=== PATIENT | male | born 1935 | race Caucasian/White ===

== ENCOUNTER 2018-12-08 06:46 | Inpatient (IN) ==
--- NOTE | 2018-12-08 07:28 | Diag Imaging Result Doc PS360 ---
CHEST-1 VIEW - 12/08/2018 INDICATION: dyspnea COMPARISON: 06/07/2013 FINDINGS: There are extensive, heterogeneous bilateral infiltrates. There is cardiomegaly and pulmonary vascular congestion. No large pleural effusion. IMPRESSION: Cardiomegaly and pulmonary vascular congestion. Bilateral infiltrates consistent with pulmonary edema and/or pneumonia. Electronically signed by Mark Orosco 12/08/2018 7:25 AM
[2018-12-08] MEDS ORDERED: LASIX IV ONE (07:38)
--- NOTE | 2018-12-08 07:43 | PROVIDER DOCUMENTATION ---
HPI-Cardiac General - General Chief Complaint: Shortness of Breath Stated Complaint: lethargic Time Seen by Provider: 12/08/18 07:08 Source: patient, old records Allergies/Adverse Reactions: Patient Allergies Allergy/AdvReac Type Severity Reaction Status Date / Time No Known Allergies Allergy Unverified 12/08/18 07:39 Home Medications: Home Medication List Medication Instructions Recorded Confirmed Last Taken Type Clonazepam [Klonopin] 0.5 mg PO HS 05/30/13 06/07/13 05/29/13 20:00 History Escitalopram [Lexapro] 20 mg PO QHS 05/30/13 06/07/13 06/10/13 History Pregabalin [Lyrica] 75 mg PO QHS 05/30/13 06/07/13 06/10/13 22:55 History Tamsulosin [Flomax] 0.4 mg PO QHS 05/30/13 06/07/13 06/10/13 22:55 History Albuterol [Albuterol Neb] 2.5 mg INH RTQ6H #0 neb 06/11/13 06/11/13 Rx Formoterol Fumarate [Foradil] 1 puff INH RTBID #0 inhaler 06/11/13 06/10/13 Rx Guaifenesin E.r. [Mucinex] 600 mg PO BID #0 tablet 06/11/13 06/10/13 Rx Polyethylene Glycol 3350 [Miralax] 17 gm PO DAILY #0 powd.pack 06/11/13 06/10/13 Rx Fluticasone/Salmet 500/50 INH 1 puff INH RTBID #0 inhaler 06/17/13 Unknown Rx [Advair 500/50 Diskus] Multivit,Fe,Ca,FA & Min [Thera M 1 each PO DAILY #0 tablet 06/17/13 Unknown Rx Plus] Risperidone [Risperdal] 2 mg PO QHS #0 tablet 06/17/13 Unknown Rx Sulfamethoxazole/Trimethoprim 1 each PO BID #14 tablet 04/14/15 Unknown Rx [Bactrim Ds Tablet] - History of Present Illness-Cardiac Nature of Presenting Problem: pt from [facility] transferred w/ report of low sats there. I find him in the room on a NRB mask w/ sat of 95%. He is awake, easily alerted, oriented X3. He says he was sent here because he had a "slow heart beat." He denies CP or any other pain. He says he has been (dyspneic) for "quite a while." chart review shows 1 prior presentation here last Mar, w/ transfer to because of STEMI. no diuretics on current med list. Review of Systems - Adult - REVIEW OF SYSTEMS - ADULT Constitutional: reports: no symptoms reported Eyes: reports: no symptoms reported Ears, Nose, Mouth & Throat: reports: no symptoms reported Cardiovascular: reports: see HPI Respiratory: reports: see HPI Gastrointestinal: reports: no symptoms reported Genitourinary: reports: no symptoms reported Musculoskeletal: reports: no symptoms reported Integumentary: reports: no symptoms reported Neurological: reports: no symptoms reported Psychiatric: reports: no symptoms reported Endocrine: reports: no symptoms reported Hematologic/Lymphatic: reports: no symptoms reported Allergic/Immunologic: reports: no symptoms reported All Other Systems: Reviewed and Negative Past History - Adult - PAST MEDICAL HISTORY-ADULT Review of Records: reports: Old Records Reviewed Major Childhood Illnesses: reports: denies history Cardiovascular: reports: denies history Respiratory: reports: denies history Gastrointestinal: reports: denies history Obstetrical/Gynecological: reports: denies history Genitourinary: reports: denies history, other (urinary retention) Musculoskeletal: reports: denies history Neurological: reports: denies history Psychiatric: reports: anxiety, depression Endocrine/Immune: reports: denies history Other Conditions: reports: denies history - PRIOR SURGERIES/PROCEDURES Surgical/Procedure History: reports: reviewed, not pertinent - IMMUNIZATION STATUS Childhood Immunizations: See Nurse Assessment Flu Vaccine: See Nurse Assessment - FAMILY HISTORY Family History: reviewed, not pertinent Physical Exam-General - PHYSICAL EXAM-ADULT Initial Vital Signs Reviewed: Yes - CONSTITUTIONAL General Appearance: no apparent distress - EYES Eyes: PERRL/EOMI. negative: sclera injected, scleral icterus - HEAD, EARS, NOSE, MOUTH & THROAT HENMT: normocephalic/atraumatic, moist mucous membranes, normal ENT inspection, other (pt has small, 'old' dried blood on L mandible, reports shaving gretta.) - NECK Neck: supple - RESPIRATORY Respiratory: decreased breath sounds, crackles - CARDIOVASCULAR Cardiovascular: regular rate, rhythm, no edema, no JVD, bradycardia - GASTROINTESTINAL (ABDOMEN) Abdominal Exam: normal bowel sounds, non tender, soft - LYMPHATIC Lymphatic: no adenopathy - MUSCULOSKELETAL Back Exam: normal inspection, no CVA tenderness Extremity: normal range of motion, no pedal edema. negative: swelling Peripheral Pulses: radial (R): 2+, radial (L): 2+ - SKIN Integumentary: normal color, normal turgor, warm/dry - NEUROLOGIC Neurologic: founder and president II-XII nml as tested, grossly normal - PSYCHIATRIC Psych/Mental Status: normal mood/affect, normal thought content Progress - PLAN OF CARE/RESULTS Progress/Plan/Lab Results: Vital Signs - 8 hr 12/08/18 07:06 12/08/18 10:34 12/08/18 11:03 Temperature 96.8 F L 97.6 F Pulse Rate 61 64 Respiratory Rate 18 11 L Blood Pressure 158/80 114/70 O2 Sat by Pulse Oximetry 95 91 L 93 L Laboratory Results - last 24 hr 12/08/18 12/08/18 12/08/18 08:07 08:07 08:07 WBC 6.90 RBC 4.92 Hgb 14.7 Hct 45.9 MCV 93.3 MCH 29.9 MCHC 32.0 L RDW Std Deviation 14.6 H Plt Count 193 MPV 9.7 Immature Gran % (Auto) 0.3 Neut % (Auto) 62.6 Lymph % (Auto) 11.2 L Haralson % (Auto) 9.4 H Eos % (Auto) 16.1 H Baso % (Auto) 0.4 Immature Gran # (Auto) 0.02 Neut # (Auto) 4.32 Lymph # (Auto) 0.77 L Haralson # (Auto) 0.65 H Eos # (Auto) 1.11 H Baso # (Auto) 0.03 PT INR PTT (Actin FS) Specimen Type Sample Site pH pCO2 pO2 HCO3 Base Excess Oxyhemoglobin ABG O2 Sat (Calculated) ABG O2 Saturation ABG Carboxyhemoglobin ABG Methemoglobin Sloan Test A-a O2 Difference Total Hemoglobin Lactate Liter Flow Blood Gas Modality FiO2 % Sodium 138 Potassium 4.8 Chloride 98 Carbon Dioxide 34 Anion Gap 6 BUN 17 Creatinine 0.9 Estimated GFR/1.73 m2 > 60 BUN/Creatinine Ratio 19 Glucose 89 Calculated Osmolality 277 Calcium 8.3 L Magnesium 2.1 Total Bilirubin 0.23 AST 11 ALT 9 L Alkaline Phosphatase 87 Creatine Kinase 50 Troponin T Wiq-U-Ypqaldgejun Pept 769 H Total Protein 6.6 Albumin 3.2 L Globulin 3.4 Albumin/Globulin Ratio 0.9 12/08/18 12/08/18 12/08/18 08:07 08:07 08:45 WBC RBC Hgb Hct MCV MCH MCHC RDW Std Deviation Plt Count MPV Immature Gran % (Auto) Neut % (Auto) Lymph % (Auto) Haralson % (Auto) Eos % (Auto) Baso % (Auto) Immature Gran # (Auto) Neut # (Auto) Lymph # (Auto) Haralson # (Auto) Eos # (Auto) Baso # (Auto) PT 15.7 INR 1.16 PTT (Actin FS) 33.6 Specimen Type ARTERIAL Sample Site R RADIAL pH 7.36 pCO2 68 H* pO2 60 HCO3 32.2 H Base Excess 9.7 H Oxyhemoglobin 89.5 L* ABG O2 Sat (Calculated) 19.7 ABG O2 Saturation 92.7 L ABG Carboxyhemoglobin 2.40 ABG Methemoglobin 1.1 Sloan Test YES A-a O2 Difference 568.0 Total Hemoglobin 15.7 Lactate 0.70 Liter Flow 15.0 Blood Gas Modality NRB FiO2 % 100.0 Sodium Potassium Chloride Carbon Dioxide Anion Gap BUN Creatinine Estimated GFR/1.73 m2 BUN/Creatinine Ratio Glucose Calculated Osmolality Calcium Magnesium Total Bilirubin AST ALT Alkaline Phosphatase Creatine Kinase Troponin T < 0.010 Ush-H-Ptwpmcrsxmg Pept Total Protein Albumin Globulin Albumin/Globulin Ratio Orders Category Date Time Status Cardiac Monitoring DIRECTED Care 12/08/18 07:10 Active Intake and Output-Strict ORDERED Care 12/08/18 07:38 Active Oxygen Therapy- ED Nursing DIRECTED Care 12/08/18 07:10 Active Saline Loc NOW Care 12/08/18 07:10 Active CHEST-1 VIEW [RAD] Stat Exams 12/08/18 07:10 Completed ABG [RESP] Routine Lab 12/08/18 08:45 Completed CBC WITH ELECTRONIC DIFF [HEME] Stat Lab 12/08/18 08:07 Completed CK PROFILE [SP CHEM] Stat Lab 12/08/18 08:07 Completed COMPREHENSIVE METABOLIC PANEL [CHEM] Stat Lab 12/08/18 08:07 Completed MAGNESIUM [CHEM] Stat Lab 12/08/18 08:07 Completed PRO B-NATRIURETIC PEPTIDE Stat Lab 12/08/18 08:07 Completed PROTIME WITH INR [COAG] Stat Lab 12/08/18 08:07 Completed PTT [COAG] Stat Lab 12/08/18 08:07 Completed TROPONIN T Stat Lab 12/08/18 08:07 Completed Furosemide [Lasix] Med 12/08/18 07:38 Discontinued 40 mg IV NOW ONE BIPAP Stat Oth 12/08/18 10:35 Active CP/SOB/Palp >45 yrs of Age Stat Oth 12/08/18 07:09 Ordered Result Diagrams: 12/08/18 08:07 12/08/18 08:07 - REASSESSMENT Reassessment #2 Time Reassessed: 12:08 Status: improving (pt tolerating BIPAP mask adequately; will consult for CHF/resp failure) - CONSULTS/PCP/HOSPITALIST Notification #1 *Consult/PCP/Hospitalist*: Nicolas (Turner) Consult Disposition: Admit Departure - Departure Date of Disposition Decision: 12/08/18 Time of Disposition Decision: 12:11 DIAGNOSIS: Acute hypercapnic respiratory failure, Pulmonary edema cardiac cause Disposition: ADMITTED INPATIENT 09 Certified Medical Emergency: Emergent Condition: Critical Referrals and Follow-Ups: Chrissy Smith MD [Primary Care Provider] - - Critical Care Note This patient required my direct & personal management of CC.: Yes Total Time (mins): 40 Critical Care Statement: This patient required my direct personal management to treat or rule out processes, the absence of which, could potentiallly result in sudden, clinically significant life or limb threatening deterioration. Attestation - Physician/ MARGARITA Attestation The physician spent face to face time with patient:: Yes Advanced Practice Provider documentation review:: Supervising physician onsite and consulted in the evaluation and care of this patient. The physician did have a face to face encounter with the patient.
[2018-12-08 08:15] LABS: BASO# 0.03 X1000 (0.0-0.2); BASO% 0.4 % (0.0-0.8); EOS# 1.11 X1000 (0.0-0.7); EOS% 16.1 % (0.0-10.0); HEMATOCRIT 45.9 % (42.0-52.0); HEMOGLOBIN 14.7 g/dL (14.0-18.0); IMM GRAN# 0.02 X1000 (0.0-0.04); IMM GRAN% 0.3 % (0.0-0.5); LYMPH# 0.77 X1000 (1.2-3.4); LYMPH% 11.2 % (20.5-51.1); MCH 29.9 PG (27-31); MCV 93.3 FL (81-99); MONO# 0.65 X1000 (0.11-0.59); MONO% 9.4 % (1.7-9.3); MPV 9.7 FL (7.4-10.4); NEUT# 4.32 X1000 (1.4-6.5); NEUT% 62.6 % (42.2-75.2); PLT 193 X1000 (130-400); RBC 4.92 XMIL (4.7-6.1); RDW 14.6 % (11.5-14.5)
[2018-12-08 08:40] LABS: INR 1.16; PROTIME 15.7 Seconds (11.0-16.0)
[2018-12-08 08:41] LABS: PTT 33.6 Seconds (22.3-41.8)
[2018-12-08 08:45] LABS: AGAP 6; ALB/GLOB RATIO 0.9; ALBUMIN 3.2 g/dL (3.5-5.0); ALKALINE PHOSPHATASE 87 U/L (32-122); BUN 17 mg/dL (8-22); CALCIUM 8.3 mg/dL (8.8-10.2); CHLORIDE 98 mmol/L (98-107); CK PROFILE 50 U/L (24-204); COSMO 277; CREATININE 0.9 mg/dL (0.7-1.2); ESTIMATED GFR > 60; GLUCOSE 89 mg/dL (70-104); GOT 11 U/L (10-34); GPT 9 U/L (10-44); MAGNESIUM 2.1 mg/dL (1.5-2.7); POTASSIUM 4.8 mmol/L (3.5-5.1); SODIUM 138 mmol/L (136-145); TCO2 34 mmol/L (25-35); TOTAL BILIRUBIN 0.23 mg/dL (0.20-1.00); TOTAL PROTEIN 6.6 g/dL (6.3-8.3)
[2018-12-08 08:50] LABS: ALLEN TEST YES; BE 9.7 mmoll (-3.0-3.0); BLOOD TYPE ARTERIAL; HCO3-(ACT) 32.2 mmoll (20.0-26.0); METHB 1.1 % (0.0-1.5); O2(CT) 19.7 mL/dL (15.0-23.0); PO2(98.6) 60 mmHg (60-100); SAMPLE BLOOD; SAO2 92.7 % (95.0-100.0); THB 15.7 g/dL (11.5-17.4); pH(98.6) 7.36 (7.35-7.45)
[2018-12-08 08:52] LABS: MODALITY NRB; PCO2(98.6) 68 mmHg (35-45)
[2018-12-08 08:53] LABS: O2HB 89.5 % (95.0-99.0)
[2018-12-08] MEDS ORDERED: DUONEB (A & A) INH PRN (12:48)
[2018-12-08] MEDS ORDERED: ASPIRIN PO STA (12:52)
[2018-12-08] MEDS: MAXIPIME 1 GM in NS 50 ML IV SCH (13:09)
--- NOTE | 2018-12-08 14:42 | Diag Imaging Result Doc PS360 ---
CT MAXILLOFACIAL(SINUS) W/CON - 12/08/2018 INDICATION: left mandibular mass TECHNIQUE: COMPARISON: 06/07/2013 FINDINGS: At the lateral left mandibular tissue, there is a superficial skin mass measuring 25 x 10 mm. This does extend into the subcutaneous fat. No lymphadenopathy. No facial bone fractures. There is advanced spondylosis of the cervical spine. No severe central canal stenosis. There is vascular disease of the carotid bulbs. IMPRESSION: Superficial skin mass at the left mandible, probably skin cancer. This does involve the subcutaneous fat but does not invade through the platysma. No adenopathy. Electronically signed by Mark Orosco 12/08/2018 2:39 PM
--- NOTE | 2018-12-08 14:52 | Diag Imaging Result Doc PS360 ---
CT THORAX W/CONTRAST - 12/08/2018 INDICATION: respiratory failure COMPARISON: 06/22/2015 FINDINGS: There is no adenopathy. There is severe COPD. There is an mucous plugging of lower lobe airways bilaterally. There are moderate infiltrates in both lower lobes. Heart and great vessels are normal. Upper abdominal images are unremarkable. There is severe COPD. There are several right-sided rib fractures with nonunion that were not present on the prior exam. IMPRESSION: Mucous plugging of bilateral lower lobe airways. Bilateral lower lobe infiltrates compatible with pneumonia. Trace pleural effusions. Severe COPD. 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 This exam was performed using automated exposure control, adjustment of mA or kV according to patient size, and/or use of iterative reconstruction technique Electronically signed by Mark Orosco 12/08/2018 2:50 PM
[2018-12-08] MEDS ORDERED: NS 1,000 ML IV ONE (15:04)
--- NOTE | 2018-12-08 15:27 | HISTORY AND PHYSICAL ---
PRIMARY CARE PROVIDER: Unknown. CHIEF COMPLAINT: Respiratory failure. HISTORY OF PRESENT ILLNESS: Mr. Soares is an 83-year-old male with a history that is obtained per chart review, as the patient has dementia and is unable to give any type of history. Apparently, he came from [facility] with hypoxia and respiratory distress. We do have, on history, that he was admitted here last year with an ST elevation [place] and transferred to [place]. When he got to the ER today, he was noted to be hypoxic. Initial ABGs showed combined hypoxic and hypercapnic respiratory failure. He was placed on BiPAP. His chemistry thus far has been unremarkable. Chest x-ray shows bilateral infiltrates consistent with edema and/or pneumonia. There is cardiomegaly as well. proBNP is only measured at 769. Thus far, we have not been able to reach any of his family. Apparently there is only a niece, so at this time his status is FULL CODE. Other than the above mentioned, history of present illness is unknown. PAST MEDICAL HISTORY: 1. History of ST elevation [place], transferred to [place] last year. Results of that is unknown at this time, presumably he had a stent. 2. History of dementia. 3. History of prostate cancer. 4. COPD. 5. Hypothyroidism. 6. Apparent anxiety, depression, and schizophrenia. 7. History of lung cancer. 8. History of atrial fibrillation. SURGICAL HISTORY: Unknown. SOCIAL HISTORY: He lives at [facility]. Said he does not smoke. Alcohol and illicit substance use is unknown. REVIEW OF SYSTEMS: Unable to obtain. ALLERGIES: None. HOME MEDICATIONS: Yet been compiled. PHYSICAL EXAMINATION: VITAL SIGNS: Blood pressure is 114/70, heart rate 64, respiratory rate is 18, O2 saturation 95% on BiPAP, temperature 98.6. GENERAL: This is a chronically ill, disheveled appearing 83-year-old male lying in hospital bed, in mild to moderate respiratory distress. NEUROLOGICAL: The patient is awake. He is disoriented, unable to give his location, date, or who our current President is. He does follow commands, however, without focal deficits. HEENT: Head is atraumatic and normocephalic. His pupils are equal, round, reactive to light. Oral mucosa is extremely dry. NECK: Trachea is midline. He has a large, what appears to be fungating mass on the left lower mandible with associated erythema and swelling of the surrounding soft tissue. No drainage. CHEST: Wheezes and rhonchi bilaterally. CARDIOVASCULAR: Regular rate and rhythm. S1 and S2 is noted. No apparent murmurs. GASTROINTESTINAL: Soft, nondistended, nontender. Bowel sounds are hypoactive. EXTREMITIES: No edema. Pulses 1+ bilaterally. DIAGNOSTIC DATA: Chest x-ray shows bilateral infiltrates, cardiomegaly, and pulmonary vascular congestion. WBC 6.9, hemoglobin 14.7, hematocrit 45.9, platelet count 193. INR 1.16. Sodium 138, potassium 4.8, chloride 98, CO2 34, anion gap 6, BUN 17, creatinine 0.9, glucose 89, calcium 8.3, AST 11, ALT 9, alkaline phosphatase 87. proBNP 769. Albumin 3.2. TSH 2.33. Lactate acid 1. ASSESSMENT AND PLAN: 1. Acute hypoxemic and hypercapnic respiratory failure. The patient does not appear volume overloaded. There is no lower extremity edema. He does have wheezing and rhonchi bilaterally and chest x-ray does show some pulmonary edema and cardiomegaly. He has been given Lasix, however, his picture is more compatible with PNA. Will check a thorax CT. Will order blood and sputum cultures and start broad spectrum antibiotics. 2. History of coronary artery disease: The patient had a ST elevation myocardial infarction last year and was transferred to [facility] but we do not know the results of that transfer. Will try to obtain those records. Trend enzymes. He has gotten an aspirin. Will monitor him closely. 4. Apparent history of lung and prostate cancer: This is per chart review only. We are checking a thorax CT and we are trying to find family that can assist us with history. In the meantime, we will continue treating him for probable underlying pneumonia and congestive heart failure. 5. Dementia: Aware. 6. Code status: At this time patient FULL CODE until we can find evidence otherwise or speak to family. He will be going to the CICU. We are awaiting an EKG that has been ordered. CRITICAL CARE TIME WITH THIS PATIENT: One hour. Dictated by CLAIRE Garber for Sonal Tiwari MD cc: CLAIRE Garber MD I performed a face to face encounter on the patient. I reviewed all labs and imaging on the patient. I agree with the H&P as dictated. is a 83 year old male with a history of multiple medical problems who was sent the ER from [facility] in respiratory failure. The patient is demented and unable to provide any history. He does state that he feels short of breath.In the ER, a chest xray was done that revealed bilateral infiltrates. On exam, the patient is oriented to self only. He has diffuse rhonchi in all lung monroy. No pedal edema noted. The patient will be admitted with a diagnosis of acute hypercapnic and hypoxemic respiratory failure secondary to bilateral lobe pneumonia. Will make the patient NPO and order a swallow evaluation to be done tomorrow. Blood and sputum cultures have been ordered and the patient has been started on broad spectrum antibiotics. Will attempt to contact the patient's family to determine code status. [facility]ITAL[facility]
[2018-12-08] MEDS: ZYVOX 600 MG/D5W 600 MG/300 ML IVPB IV SCH (16:18)
[2018-12-08] MEDS: DUONEB (A & A) INH SCH ×3 (16:43→23:22)
--- NOTE | 2018-12-08 17:14 | Diag Imaging Result Doc PS360 ---
CT HEAD W/O CONTRAST - 12/08/2018 INDICATION: ams eval COMPARISON: 06/07/2013 FINDINGS: There is stable mild diffuse cerebral atrophy. There is mild periventricular white matter chronic microvascular disease. No intracranial mass or hemorrhage. The skull is intact. The sinuses are clear. IMPRESSION: No acute disease or change from prior. This exam was performed using automated exposure control, adjustment of mA or kV according to patient size, and/or use of iterative reconstruction technique Electronically signed by Mark Orosco 12/08/2018 5:12 PM
[2018-12-08] MEDS: MUCOMYST 20% INH SCH (19:30)
[2018-12-08] MEDS ORDERED: SODIUM CHLORIDE 0.9% INJ PRN (21:36)
[2018-12-08] MEDS ORDERED: SODIUM CHLORIDE 0.9% INJ SCH (21:45)
[2018-12-08 22:05] LABS: ALLEN TEST YES; BE 9.4 mmoll (-3.0-3.0); BLOOD TYPE ARTERIAL; HCO3-(ACT) 32.2 mmoll (20.0-26.0); METHB 1.2 % (0.0-1.5); O2(CT) 20.4 mL/dL (15.0-23.0); O2HB 94.5 % (95.0-99.0); PO2(98.6) 82 mmHg (60-100); SAMPLE BLOOD; SAO2 97.5 % (95.0-100.0); THB 15.3 g/dL (11.5-17.4); pH(98.6) 7.38 (7.35-7.45)
[2018-12-08 22:06] LABS: MODALITY NRB
[2018-12-08 22:07] LABS: PCO2(98.6) 63 mmHg (35-45)
[2018-12-09] MEDS: MAXIPIME 1 GM in NS 50 ML IV SCH ×2 (00:11→13:53)
[2018-12-09] MEDS: DUONEB (A & A) INH SCH ×6 (03:06→23:18)
[2018-12-09 03:24] LABS: ALLEN TEST YES; BE 9.4 mmoll (-3.0-3.0); BLOOD TYPE ARTERIAL; HCO3-(ACT) 32.1 mmoll (20.0-26.0); METHB 1.2 % (0.0-1.5); O2HB 91.3 % (95.0-99.0); PO2(98.6) 65 mmHg (60-100); SAMPLE BLOOD; THB 14.8 g/dL (11.5-17.4); pH(98.6) 7.39 (7.35-7.45)
[2018-12-09 03:25] LABS: MODALITY NRB
[2018-12-09 03:26] LABS: PCO2(98.6) 61 mmHg (35-45)
[2018-12-09] MEDS: ZYVOX 600 MG/D5W 600 MG/300 ML IVPB IV SCH ×2 (05:02→15:36)
[2018-12-09] MEDS ORDERED: OFIRMEV 1000 MG/ISOTONIC SOLN 1,000 MG/100 ML BOTTLE IV ONE (05:12)
[2018-12-09 05:29] LABS: BASO# 0.03 X1000 (0.0-0.2); BASO% 0.4 % (0.0-0.8); EOS# 0.88 X1000 (0.0-0.7); EOS% 12.1 % (0.0-10.0); HEMATOCRIT 45.2 % (42.0-52.0); HEMOGLOBIN 14.3 g/dL (14.0-18.0); IMM GRAN# 0.02 X1000 (0.0-0.04); IMM GRAN% 0.3 % (0.0-0.5); MCH 29.8 PG (27-31); MCHC 31.6 g/dL (33-37); MCV 94.2 FL (81-99); MONO# 0.64 X1000 (0.11-0.59); MONO% 8.8 % (1.7-9.3); MPV 9.7 FL (7.4-10.4); NEUT# 4.89 X1000 (1.4-6.5); NEUT% 67.4 % (42.2-75.2); PLT 202 X1000 (130-400); RDW 14.5 % (11.5-14.5); WBC 7.26 X1000 (4.8-10.8)
[2018-12-09] MEDS: PROTONIX PO SCH ×2 (05:42→06:02)
[2018-12-09] MEDS: SYNTHROID IV SCH ×2 (05:42→06:02)
[2018-12-09 06:01] LABS: AGAP 3; BUN 17 mg/dL (8-22); CALCIUM 8.1 mg/dL (8.8-10.2); CHLORIDE 101 mmol/L (98-107); COSMO 282; CREATININE 0.9 mg/dL (0.7-1.2); ESTIMATED GFR > 60; GLUCOSE 80 mg/dL (70-104); POTASSIUM 4.6 mmol/L (3.5-5.1); SODIUM 141 mmol/L (136-145); TCO2 37 mmol/L (25-35)
[2018-12-09] MEDS ORDERED: PROTONIX IV SCH (07:00)
--- NOTE | 2018-12-09 07:03 | Diag Imaging Result Doc PS360 ---
CHEST-PORTABLE - 12/09/2018 INDICATION: pneumonia COMPARISON: 12/08/2018 FINDINGS: There is worsening cardiomegaly and pulmonary vascular congestion. There is decrease in the patchy central infiltrates bilaterally, however there is worsening interstitial pulmonary edema. Trace left pleural effusion is stable from prior. IMPRESSION: Mixed changes from prior. Cardiomegaly, pulmonary edema, trace left pleural effusion. Electronically signed by Mark Orosco 12/09/2018 7:00 AM
[2018-12-09] MEDS: MUCOMYST 20% INH SCH ×2 (08:16→19:30)
[2018-12-09] MEDS ORDERED: HEPARIN SUBQ SCH (09:00)
--- NOTE | 2018-12-09 09:53 | EKG Report ---
Test Performed on : 12/08/2018 08:00:25 AM Test Reason : ED. NO order in [place] Blood Pressure : / mmHG Vent. Rate : 058 BPM Atrial Rate : 058 BPM P-R Int : 194 ms QRS Dur : 104 ms QT Int : 418 ms P-R-T Axes : 029 -09 059 degrees QTc Int : 410 ms Sinus bradycardia. Anterior infarct , age undetermined Abnormal ECG When compared with ECG of 29-MAR-2018 21:27, Vent. rate has decreased BY [address] no longer elevated in Inferior leads Unconfirmed Result
[2018-12-09] MEDS ORDERED: TYLENOL PR PRN (12:00)
--- NOTE | 2018-12-09 15:25 | PROGRESS NOTE ---
DATE: 12/09/2018 SUBJECTIVE: The patient is awake and alert. He states that he wants to eat something. OBJECTIVE: Vital Signs: Temperature 97 degrees, blood pressure 129/53, heart rate 60, respirations 14, O2 saturation is 95% on non-rebreather mask. General: This is a chronically ill- appearing, elderly male lying in bed, in no acute distress. Head: Normocephalic, atraumatic. Heart: S1, S2. Normal. Lungs: Equal air entry bilaterally. Diminished breath sounds at the bases. Abdomen: Positive bowel sounds. Soft, nontender, nondistended. Extremities: No edema. No cyanosis. Neurologic: The patient is alert and oriented to self. He is able to move all 4 extremities. LABS: White blood cell count 7.2, hemoglobin 14, hematocrit 45, platelets 202,000. ABG, pH 7.39, pCO2 61, PO2 65, bicarb 32. Sodium 141, potassium 4.6, chloride 101, CO2 37, BUN 17, creatinine 0.9, glucose 80, calcium 8.1, magnesium 2. Chest x-ray shows cardiomegaly, pulmonary edema, and a trace left pleural effusion. ASSESSMENT AND PLAN: 1. Acute hypercapnic respiratory failure. Continue to treat the underlying issues. 2. Bilateral lobe pneumonia. Continue with broad-spectrum antibiotics, supplemental oxygen, and bronchodilator therapy. 3. Severe chronic obstructive pulmonary disease. Aware. Continue with bronchodilator therapy. 4. Dementia. Aware. 5. Hypothyroidism. Continue on Synthroid. 6. Suspected right facial skin cancer. The patient will need a dermatology consult upon discharge from the hospital. 7. Deep vein thrombosis prophylaxis. Continue on heparin. cc: Sonal Tiwari MD [facility]
[2018-12-09] MEDS: PERCOCET-5 PO PRN (15:35)
[2018-12-09] MEDS ORDERED: TYLENOL PO PRN (18:37)
[2018-12-09] MEDS: ZOFRAN IV PRN (19:24)
[2018-12-09] MEDS: SYMBICORT 160/4.5 MICROGM INHALER INH SCH (19:30)
[2018-12-09] MEDS: REMERON PO SCH (20:09)
[2018-12-09] MEDS: MELATONIN PO SCH (20:10)
[2018-12-09] MEDS: COLACE PO SCH (20:10)
[2018-12-09] MEDS: ELIQUIS PO SCH (20:10)
[2018-12-09] MEDS: RISPERDAL PO SCH (20:10)
[2018-12-09] MEDS: FLOMAX PO SCH (20:10)
[2018-12-09] MEDS ORDERED: PHENERGAN IV ONE (22:07)
[2018-12-09] MEDS ORDERED: SODIUM CHLORIDE 0.9% INJ ONE (22:07)
[2018-12-09] MEDS: KLONOPIN PO PRN (23:25)
[2018-12-10] MEDS: MAXIPIME 1 GM in NS 50 ML IV SCH ×2 (01:02→14:06)
[2018-12-10] MEDS: ZOFRAN IV PRN (01:34)
[2018-12-10] MEDS: DUONEB (A & A) INH SCH ×6 (03:17→22:59)
[2018-12-10] MEDS: PERCOCET-5 PO PRN (04:06)
[2018-12-10] MEDS: ZYVOX 600 MG/D5W 600 MG/300 ML IVPB IV SCH ×2 (04:06→16:31)
[2018-12-10 05:45] LABS: BASO# 0.01 X1000 (0.0-0.2); BASO% 0.1 % (0.0-0.8); EOS# 0.66 X1000 (0.0-0.7); EOS% 9.5 % (0.0-10.0); HEMATOCRIT 42.3 % (42.0-52.0); HEMOGLOBIN 13.6 g/dL (14.0-18.0); LYMPH# 0.88 X1000 (1.2-3.4); LYMPH% 12.7 % (20.5-51.1); MCHC 32.2 g/dL (33-37); MCV 93.2 FL (81-99); MONO# 0.66 X1000 (0.11-0.59); MONO% 9.5 % (1.7-9.3); NEUT# 4.71 X1000 (1.4-6.5); NEUT% 68.2 % (42.2-75.2); PLT 188 X1000 (130-400); RBC 4.54 XMIL (4.7-6.1); RDW 14.2 % (11.5-14.5); WBC 6.92 X1000 (4.8-10.8)
[2018-12-10] MEDS: PROTONIX PO SCH (06:11)
[2018-12-10] MEDS: SYNTHROID PO SCH (06:11)
[2018-12-10 06:28] LABS: CHLORIDE 99 mmol/L (98-107); POTASSIUM 3.9 mmol/L (3.5-5.1); SODIUM 137 mmol/L (136-145); TCO2 31 mmol/L (25-35)
[2018-12-10 06:29] LABS: AGAP 7; BUN 16 mg/dL (8-22); CALCIUM 7.8 mg/dL (8.8-10.2); COSMO 275; CREATININE 0.9 mg/dL (0.7-1.2); ESTIMATED GFR > 60; GLUCOSE 97 mg/dL (70-104); MAGNESIUM 1.9 mg/dL (1.5-2.7)
--- NOTE | 2018-12-10 06:39 | Diag Imaging Result Doc PS360 ---
EXAM: CHEST-PORTABLE HISTORY: pneumonia TECHNIQUE: Portable chest single view COMPARISON: 12/09/2018 FINDINGS: Poor inspiratory effort. The heart remains enlarged. Pulmonary edema persists. There is a small left pleural effusion with basilar atelectasis. There may be underlying infiltrates. IMPRESSION: No interval improvement. Electronically signed by Javi Salomon 12/10/2018 6:36 AM
[2018-12-10] MEDS: MUCOMYST 20% INH SCH ×2 (07:58→19:30)
[2018-12-10] MEDS: SYMBICORT 160/4.5 MICROGM INHALER INH SCH ×2 (08:00→19:30)
[2018-12-10] MEDS: ELIQUIS PO SCH ×2 (08:25→20:35)
[2018-12-10] MEDS: MIRALAX PO SCH (08:25)
[2018-12-10] MEDS: COLACE PO SCH ×2 (08:25→20:35)
[2018-12-10] MEDS: THERA M PLUS PO SCH (08:25)
[2018-12-10] MEDS: PROSCAR PO SCH (08:25)
--- NOTE | 2018-12-10 08:46 | PROGRESS NOTE ---
DATE: 12/10/2018 SUBJECTIVE: Mr. Soares is an 83-year-old male with a history from the chart who has dementia. He came from [facility] with hypoxia and respiratory distress. I am not sure who his primary caregiver is. He was admitted last year with an ST-elevation myocardial infarction and transferred to [place] per the old records. When in the emergency room, he was hypoxic. His blood gases showed combined hypoxic and hypercapnic respiratory failure. He is placed on BiPAP. His chemistry thus far is unremarkable. Chest x-ray showed bilateral infiltrates consistent with edema and possible pneumonia. He had cardiomegaly as well. ProBNP was measured at 769. Apparently, the only family around is a niece. He is still a Full Code. PAST MEDICAL HISTORY: 1. History of ST-elevation myocardial infarction, transferred to [place] last year, results unknown at this time. 2. History of dementia. 3. History of prostate cancer. 4. COPD. 5. Hypothyroidism. 6. Apparent anxiety, depression and schizophrenia. 7. History of lung cancer. 8. History of atrial fibrillation. SURGICAL HISTORY: Unknown. So today, he was awake, I think he is oriented to person. He answers questions appropriately. He reports he feels he is breathing better. OBJECTIVE: Vitals: Temperature 97.9 degrees, pulse 64, respirations 22, blood pressure 112/57. Eyes: His pupils are equal. Neck: I did not appreciate distended neck veins. Lungs: Clear anterolateral. Cardiovascular: Regular rhythm and rate without murmur or S3. Abdomen: Soft. Skin: Warm and dry. URINE OUTPUT: 900 mL. LABORATORY DATA: Review of his laboratory, white count 6920, hematocrit is 42, platelet count 188,000. Sodium 137, potassium 3.9, chloride 99, BUN 16, creatinine 0.9, calcium 7.8. Troponins were less than 0.01. CK 54 and 51. ASSESSMENT AND PLAN: 1. Acute hypercapnic respiratory failure. Continue his supplementary O2 and pulmonary toilet. 2. I suspect bilateral lobe pneumonia. So continue broad-spectrum antibiotics. He is from the skilled nursing, supplemental oxygen and bronchodilator therapy. 3. Exacerbation of chronic obstructive pulmonary disease. 4. Dementia. Aware. 5. History of hypothyroidism. He is on Synthroid. Appears to be euthyroid. 6. Right facial skin cancer. We will need to discharge with Dermatology on discharge. 7. Continue deep venous thrombosis prophylaxis. 8. Review of Orders: He is on melatonin 5 mg at bedtime, Remeron 45 mg at bedtime, Risperdal 1.5 mg at bedtime, Flomax 0.54 mg at bedtime, Eliquis 5 mg b.i.d., prednisone, formoterol inhaler 1 puff b.i.d., Klonopin 0.5 mg t.i.d. p.r.n., Colace 100 mg b.i.d., Proscar 5 mg a day, Synthroid 25 mg daily, cefepime 1 g IV q.12h, metoprolol 50 mg a day, multivitamin daily, oxycodone 1.5 mg b.i.d. p.r.n., Protonix 40 mg daily, polyethylene glycol 17 g p.o. daily, linezolid 600 mg IV q.12h, getting IV fluids at 75 mL an hour. cc: Sloan Ji MD
[2018-12-10] MEDS ORDERED: CYMBALTA PO SCH (09:00)
[2018-12-10] MEDS ORDERED: TOPROL XL PO SCH (09:00)
[2018-12-10] MEDS ORDERED: WELLBUTRIN PO SCH (09:00)
--- NOTE | 2018-12-10 12:54 | ECHO REPORT ---
ORDER DATE: 12/08/2018 ECHOCARDIOGRAPHIC MEASUREMENTS: 1. Interventricular septum 1.0. 2. Left ventricular posterior wall 0.9. 3. Diastolic diameter 5.2. 4. Left atrium 3.5. 5. Aorta 4. SUMMARY: 1. There is left atrial enlargement. 2. Aortic valve leaflets were trileaflet. 3. Mitral valve was normal. 4. Tricuspid valve was normal. 5. Pulmonic valve was normal. 6. There is mild mitral annular calcification. 7. There is mild tricuspid regurgitation. Peak velocity across the tricuspid valve was 2.9 m/sec. Pulmonary artery systolic pressure 44 mmHg. 8. There is mild mitral regurgitation. 9. There is no aortic stenosis. There is mild aortic regurgitation. 10. There is diastolic dysfunction. 11. Normal left ventricular cavity size. Estimated ejection fraction of 55% to 60%. 12. There is no pericardial effusion or obvious intracardiac mass or thrombus. cc: MD Orlando Salmon CRNP
[2018-12-10 17:16] LABS: URINE SOURCE CATH
[2018-12-10 17:22] LABS: BILIRUBIN URINE NEGATIVE (NEGATIVE); BLOOD URINE LARGE (NEGATIVE); COLOR YELLOW; GLUCOSE URINE NEGATIVE (NEGATIVE); KETONE URINE 20 mg/dL (NEGATIVE); LEUKOCYTES URINE SMALL (NEGATIVE); NITRITE URINE NEGATIVE (NEGATIVE); PROTEIN URINE 50 mg/dL (NEGATIVE); SP GRAVITY URINE 1.021; TURBIDITY URINE HAZY (CLEAR); UROBILINOGEN URINE NORMAL (NORMAL)
[2018-12-10 17:23] LABS: UR EPITHELIAL CELLS <10 /HPF (<10); URINE BACTERIA NEGATIVE /HPF; URINE RBC TNTC /HPF (<10)
[2018-12-10] MEDS: REMERON PO SCH (20:30)
[2018-12-10] MEDS: RISPERDAL PO SCH (20:30)
[2018-12-10] MEDS: MELATONIN PO SCH (20:35)
[2018-12-10] MEDS: FLOMAX PO SCH (20:38)
[2018-12-10] MEDS: KLONOPIN PO PRN (22:18)
[2018-12-11] MEDS: MAXIPIME 1 GM in NS 50 ML IV SCH ×2 (02:56→14:38)
[2018-12-11] MEDS: DUONEB (A & A) INH SCH ×6 (03:56→23:30)
[2018-12-11] MEDS: ZYVOX 600 MG/D5W 600 MG/300 ML IVPB IV SCH ×2 (04:24→15:03)
[2018-12-11 05:49] LABS: BASO# 0.02 X1000 (0.0-0.2); BASO% 0.3 % (0.0-0.8); EOS# 0.75 X1000 (0.0-0.7); EOS% 10.3 % (0.0-10.0); HEMATOCRIT 44.2 % (42.0-52.0); HEMOGLOBIN 14.2 g/dL (14.0-18.0); LYMPH# 0.83 X1000 (1.2-3.4); LYMPH% 11.4 % (20.5-51.1); MCH 29.7 PG (27-31); MCHC 32.1 g/dL (33-37); MCV 92.5 FL (81-99); MONO# 0.78 X1000 (0.11-0.59); MONO% 10.7 % (1.7-9.3); MPV 10.1 FL (7.4-10.4); NEUT# 4.88 X1000 (1.4-6.5); NEUT% 67.3 % (42.2-75.2); PLT 178 X1000 (130-400); RBC 4.78 XMIL (4.7-6.1); WBC 7.26 X1000 (4.8-10.8)
[2018-12-11] MEDS: SYNTHROID PO SCH (06:15)
[2018-12-11] MEDS: PROTONIX PO SCH (06:15)
[2018-12-11 06:32] LABS: AGAP 9; BUN 14 mg/dL (8-22); CALCIUM 7.7 mg/dL (8.8-10.2); CHLORIDE 100 mmol/L (98-107); COSMO 274; CREATININE 0.9 mg/dL (0.7-1.2); ESTIMATED GFR > 60; GLUCOSE 101 mg/dL (70-104); MAGNESIUM 2.1 mg/dL (1.5-2.7); POTASSIUM 4.1 mmol/L (3.5-5.1); SODIUM 137 mmol/L (136-145); TCO2 28 mmol/L (25-35)
--- NOTE | 2018-12-11 07:05 | PROGRESS NOTE ---
DATE: 12/11/2018 SUBJECTIVE: Mr. Soares is more awake and alert. He says he does feel better. Breathing is better, and still feels pretty weak. No complaints of pain. OBJECTIVE: Temperature 98.1 degrees, pulse 40, respirations 17, and blood pressure. 129/61. His pulse has been in the 40 to 55 range. Lungs are clear anterolateral. Cardiovascular regular rhythm and rate without murmur or S3. Abdomen is soft. Skin is warm and dry. LABORATORY DATA: Labs from this morning, white count 7260, hematocrit is 44, and platelet count 178,000. Chemistry: Sodium 137, potassium 3.9, chloride 99, BUN 16, and creatinine 0.9. ASSESSMENT AND PLAN: 1. Acute hypercapnic respiratory failure. Continue supplementary O2. I believe he has O2 at home. Continue pulmonary toilet. 2. Suspect bilateral pneumonia. Treating with broad-spectrum antibiotics. He clinically is improved. 3. Exacerbation of COPD. 4. Dementia. 5. History of hypothyroidism. He is on his Synthroid, and appears to be euthyroid. 6. Right facial skin cancer, which we suspect he will need to follow up with Dermatology on discharge. 7. Deep venous thrombosis prophylaxis. Continue. 8. I may also cut down his metoprolol to 25 p.o. daily because of the bradycardia. 9. Review of his orders. I do not see any change. I will get Physical Therapy to start working with him to work on his strength in preparation to try to go home. cc: Sloan Ji MD
[2018-12-11] MEDS: MUCOMYST 20% INH SCH ×2 (07:59→19:45)
[2018-12-11] MEDS: SYMBICORT 160/4.5 MICROGM INHALER INH SCH ×2 (08:07→19:45)
[2018-12-11] MEDS: MIRALAX PO SCH (08:37)
[2018-12-11] MEDS: ELIQUIS PO SCH ×2 (08:39→20:31)
[2018-12-11] MEDS: COLACE PO SCH ×2 (08:39→20:31)
[2018-12-11] MEDS: PROSCAR PO SCH (08:39)
[2018-12-11] MEDS: THERA M PLUS PO SCH (08:39)
[2018-12-11] MEDS: TOPROL XL PO SCH (08:39)
[2018-12-11] MEDS: ZOFRAN IV PRN (10:08)
[2018-12-11] MEDS: REMERON PO SCH (20:31)
[2018-12-11] MEDS: RISPERDAL PO SCH (20:31)
[2018-12-11] MEDS: MELATONIN PO SCH (20:31)
[2018-12-11] MEDS: FLOMAX PO SCH (20:31)
[2018-12-11] MEDS: KLONOPIN PO PRN (22:46)
[2018-12-12] MEDS: MAXIPIME 1 GM in NS 50 ML IV SCH ×2 (02:48→15:10)
[2018-12-12] MEDS: DUONEB (A & A) INH SCH ×6 (03:14→23:31)
[2018-12-12] MEDS: ZYVOX 600 MG/D5W 600 MG/300 ML IVPB IV SCH ×2 (03:27→15:10)
[2018-12-12 06:16] LABS: AGAP 8; BUN 11 mg/dL (8-22); CHLORIDE 100 mmol/L (98-107); COSMO 274; CREATININE 0.9 mg/dL (0.7-1.2); ESTIMATED GFR > 60; GLUCOSE 120 mg/dL (70-104); POTASSIUM 3.7 mmol/L (3.5-5.1); SODIUM 137 mmol/L (136-145); TCO2 29 mmol/L (25-35)
[2018-12-12] MEDS: PROTONIX PO SCH (06:21)
[2018-12-12] MEDS: SYNTHROID PO SCH (06:21)
--- NOTE | 2018-12-12 07:19 | Diag Imaging Result Doc PS360 ---
EXAM: CHEST-PORTABLE 12/12/2018 HISTORY: copd, pneumonia TECHNIQUE: AP portable at 0537 COMMENT: There is cardiomegaly and diffuse interstitial and alveolar opacity consistent with pulmonary edema. This has worsened slightly on the right compared to 12/10/2018, despite the relatively better inspiration. IMPRESSION: Worsening pulmonary edema plus minus pneumonia. Electronically signed by Jan Olivares 12/12/2018 7:16 AM
[2018-12-12] MEDS: MUCOMYST 20% INH SCH ×2 (07:37→19:20)
[2018-12-12] MEDS: SYMBICORT 160/4.5 MICROGM INHALER INH SCH ×2 (07:38→19:20)
[2018-12-12] MEDS: COLACE PO SCH ×2 (08:22→20:35)
[2018-12-12] MEDS: ELIQUIS PO SCH ×2 (08:22→20:35)
[2018-12-12] MEDS: THERA M PLUS PO SCH (08:22)
[2018-12-12] MEDS: PROSCAR PO SCH (08:22)
[2018-12-12] MEDS: MIRALAX PO SCH (08:22)
[2018-12-12] MEDS: TOPROL XL PO SCH (08:22)
--- NOTE | 2018-12-12 09:12 | PROGRESS NOTE ---
DATE: 12/12/2018 SUBJECTIVE: Mr. Soares is feeling better. He feels stronger. He wants to go back to [facility], but his chest x-ray still shows quite a bit of pleural effusion. I think he needs some more treatment and we will continue to treat his pneumonia with IV antibiotics. I think he is going to need another 48 hours or so. OBJECTIVE: Vital signs: Temperature 98 degrees, pulse 57, respirations 19, blood pressure 149/78. HEENT: Pupils are equal and round. Lungs: Clear in all lung monroy. Cardiovascular: Regular rhythm and rate without murmur or S3. Abdomen: Soft. Skin: Warm and dry. ASSESSMENT AND PLAN: 1. Acute hypercapnic respiratory failure. Continue supplemental O2. We have been able to wean him down. His air and gas exchange is better. 2. Suspect bilateral pneumonia. Continue broad-spectrum antibiotics. I do not have any cultures to identify organism. 3. Exacerbation of chronic obstructive pulmonary disease. 4. Some pulmonary venous hypertension. I am going to diurese him some. 5. Dementia. 6. Hypothyroidism. 7. Right facial skin cancer which we need to make sure we get a follow-up at discharge. 8. Deep venous thrombosis. Continue current treatment. 9. We have cut his metoprolol down. His heart rate looks like it is doing better, it is in the 50s to 60s. cc: Sloan Ji MD
--- NOTE | 2018-12-12 09:24 | DISCHARGE SUMMARY ---
ADMISSION DATE: 12/08/2018 DISCHARGE DATE: DISPOSITION: Patient was admitted on 12/08/2018, came from [facility]. He is going back to [facility] on 12/12/2018. FAMILY PHYSICIAN: Dr. Chrissy Smith. REASON FOR ADMISSION: Came in with respiratory failure. BRIEF HISTORY: Mr. Soares is an 83-year-old male with history of dementia, unable to give much history. He is from [facility]. He came in with hypoxic respiratory failure. In the emergency room, was noted to be hypoxic. Initial blood gases showed combined hypoxic, hypercapnic respiratory failure. He was placed on BiPAP. His chemistries were unremarkable. Chest x-ray showed bilateral infiltrates consistent with edema versus pneumonia. He had cardiomegaly. ProBNP was 769, and so he was admitted, registered as a full code. PAST MEDICAL HISTORY: 1. History of ST-elevation myocardial infarction, transferred to [place] last year. Results of this unknown. Presumably, he had a stent placed. 2. History of dementia. 3. History of prostate cancer. 4. COPD. 5. Hypothyroidism. 6. Apparent anxiety, depression and schizophrenia. 7. History of lung cancer. 8. History of atrial fibrillation. So admitted. ADMISSION DIAGNOSES: 1. Acute hypoxemic hypercapnic respiratory failure and appeared to have some volume overload and lower extremity edema and some wheezing and rhonchi bilaterally, so he was diuresed, put on antibiotics, treating him for bilateral pneumonia. 2. History of coronary artery disease. No sign of active ischemia. The patient has had a recent history of ST-elevation myocardial infarction. This was with last year where he was transferred to [facility] but no sign of active ischemia at this time. 3. Apparent history of lung and prostate cancer. Checking CT of the thorax and aware of this. 4. Dementia. 5. Full code status. HOSPITAL COURSE: He was admitted to [facility]. Chest x-ray showed cardiomegaly, pulmonary vascular congestion, bilateral infiltrates consistent with pulmonary edema and probable pneumonia. Maxillofacial CT, he had a superficial skin mass in the left mandible, probably skin cancer. This does involve the subcutaneous fat., and so will recommend he get outpatient evaluation on that. He had a chest CT done. Mucous plugging of bilateral lower lobe airways, bilateral lower lobe infiltrates compatible with pneumonia, trace pleural effusions, severe COPD, chronic rib fractures on the right with nonunion appreciated. CT of his head, no acute disease or change from prior. Followup chest x-ray on 12/09/2018, mixed changes, cardiomegaly, pulmonary edema, trace left pleural effusion, and then repeat chest x-ray on 12/10/2018, no interval improvement. Chest x-ray this morning has some pulmonary edema plus-minus still some infiltrate. The patient feels better. He would like to go home back to [facility]. He is stronger. OBJECTIVE: Vital signs: Today, temperature 98 degrees, pulse 57, respirations 19, blood pressure 149/78. HEENT: Pupils are equal and round. Lungs: Clear anterolateral. Cardiovascular: Regular rhythm and rate without murmur or S3. Abdomen: Soft. Skin: Warm and dry. LABORATORY DATA: Blood work looks good. CURRENT MEDICATIONS: 1. He is taking Symbicort inhaler. 2. He is on Klonopin 0.5 mg t.i.d. p.r.n. 3. Colace 100 mg b.i.d. 4. Proscar 5 mg a day. 5. Synthroid 25 mcg a day. 6. He is on linezolid 600 mg q.12. 7. He has Percocet 1-/2 he takes twice a day p.r.n. 8. Protonix 40 mg a day. 9. MiraLAX 17 g a day. 10. Risperdal 1.5 mg at bedtime. 11. Flomax 0.4 mg a day. NOTE: His x-ray shows worsening edema. We are going to need to diurese him some more, and I think he is radiographically going to need to improve before we can send him back to [facility], so he will not be discharged today and I will put in a progress note here in a minute. cc: Sloan Ji MD MTDEmory
[2018-12-12] MEDS: LASIX IV SCH ×2 (10:05→20:36)
[2018-12-12] MEDS: PERCOCET-5 PO PRN (18:23)
[2018-12-12] MEDS: REMERON PO SCH (20:35)
[2018-12-12] MEDS: MELATONIN PO SCH (20:35)
[2018-12-12] MEDS: FLOMAX PO SCH (20:35)
[2018-12-12] MEDS: RISPERDAL PO SCH (20:36)
[2018-12-13] MEDS: KLONOPIN PO PRN (00:32)
[2018-12-13] MEDS: MAXIPIME 1 GM in NS 50 ML IV SCH ×2 (01:30→13:56)
[2018-12-13] MEDS: DUONEB (A & A) INH SCH ×6 (03:23→22:45)
[2018-12-13] MEDS: ZYVOX 600 MG/D5W 600 MG/300 ML IVPB IV SCH (04:09)
[2018-12-13] MEDS ORDERED: CARDIZEM IV ONE (04:34)
[2018-12-13] MEDS ORDERED: CARDIZEM 125 MG/D5W 125 MG/125 ML IVPB IV SCH (04:45)
[2018-12-13] MEDS ORDERED: CARDIZEM 125/NS 125 MG/125 ML IVPB IV SCH (05:00)
[2018-12-13] MEDS: SYNTHROID PO SCH (06:12)
[2018-12-13] MEDS: PROTONIX PO SCH (06:12)
[2018-12-13 06:26] LABS: AGAP 13; ALB/GLOB RATIO 0.8; ALBUMIN 3.2 g/dL (3.5-5.0); ALKALINE PHOSPHATASE 84 U/L (32-122); BUN 15 mg/dL (8-22); CALCIUM 8.1 mg/dL (8.8-10.2); CHLORIDE 95 mmol/L (98-107); COSMO 274; ESTIMATED GFR > 60; GLUCOSE 116 mg/dL (70-104); GOT 20 U/L (10-34); GPT 16 U/L (10-44); MAGNESIUM 1.8 mg/dL (1.5-2.7); POTASSIUM 3.7 mmol/L (3.5-5.1); SODIUM 136 mmol/L (136-145); TCO2 28 mmol/L (25-35); TOTAL BILIRUBIN 0.38 mg/dL (0.20-1.00); TOTAL PROTEIN 7.4 g/dL (6.3-8.3)
--- NOTE | 2018-12-13 06:59 | EKG Report ---
Test Performed on : 12/13/2018 06:17:48 AM Test Reason : Change in rhythm Blood Pressure : / mmHG Vent. Rate : 070 BPM Atrial Rate : 070 BPM P-R Int : 162 ms QRS Dur : 102 ms QT Int : 416 ms P-R-T Axes : 062 -06 073 degrees QTc Int : 449 ms Sinus rhythm. with frequent premature ventricular complexes. in a pattern of bigeminy. Minimal voltage criteria for LVH, may be normal variant Anterior infarct , age undetermined Abnormal ECG When compared with ECG of 13-DEC-2018 03:42, (Unconfirmed) Significant changes have occurred Confirmed by Garrison SHEPHERD, Sloan Jimenez ([id number]) on 12/13/2018 12:00:43 PM
--- NOTE | 2018-12-13 06:59 | EKG Report ---
Test Performed on : 12/13/2018 03:42:54 AM Test Reason : CIC. NO EKG ORDER FOR MUSE Blood Pressure : / mmHG Vent. Rate : 132 BPM Atrial Rate : 144 BPM P-R Int : 000 ms QRS Dur : 096 ms QT Int : 322 ms P-R-T Axes : 000 007 103 degrees QTc Int : 477 ms Atrial fibrillation. with rapid ventricular response. with premature ventricular or aberrantly conduc nasir complexes. Minimal voltage criteria for LVH, may be normal variant Possible Inferior infarct , age undetermined Marked ST abnormality, possible lateral subendocardial injury Abnormal ECG When compared with ECG of 08-DEC-2018 08:00, (Unconfirmed) Atrial fibrillation. has replaced Sinus rhythm. Vent. rate has increased BY 74 BPM Borderline criteria for Inferior infarct are now present ST now depressed in Anterolateral leads Confirmed by Garrison SHEPHERD, Sloan Jimenez ([id number]) on 12/13/2018 12:00:38 PM
--- NOTE | 2018-12-13 07:13 | Diag Imaging Result Doc PS360 ---
EXAM: CHEST-PORTABLE 12/13/2018 HISTORY: pulmonary venous htn TECHNIQUE: AP portable at 0532 COMMENT: Compared to 12/12/2018 the pulmonary opacity has generally improved despite the somewhat less optimal inspiration on the current examination. IMPRESSION: Improved pulmonary edema. Electronically signed by Jan Olivares 12/13/2018 7:11 AM
[2018-12-13] MEDS ORDERED: DULCOLAX PR PRN (07:46)
[2018-12-13] MEDS ORDERED: MILK OF MAGNESIA PO PRN (07:47)
[2018-12-13] MEDS: MUCOMYST 20% INH SCH ×2 (08:18→19:25)
[2018-12-13] MEDS: SYMBICORT 160/4.5 MICROGM INHALER INH SCH ×2 (08:20→19:25)
--- NOTE | 2018-12-13 08:21 | PROGRESS NOTE ---
DATE: 12/12/2018 SUBJECTIVE: He is stronger. Seems to be breathing better. OBJECTIVE: Vital Signs: Temperature 97.4, remains afebrile. Pulse 60, respirations 17, blood pressure 112/66. Weight is 160 pounds. HEENT: Pupils are equal and round. Lungs: Clear in all lung monroy. Cardiovascular: Regular rate without murmur or S3. DIAGNOSTIC DATA: Chest x-ray: Improved pulmonary edema. ASSESSMENT AND PLAN: 1. Acute hypercapnic respiratory failure. Continue supplemental O2, and we will continue to diurese. X-ray looks better. Clinical exam better. 2. Suspect bilateral pneumonia. I think this has been well treated. Continue present antibiotics. 3. Exacerbation of chronic obstructive pulmonary disease. 4. Pulmonary venous hypertension. Continue to diurese. 5. Dementia. 6. Hypothyroidism. 7. Right facial skin cancer. We need to make sure he gets follow-up at discharge. He probably needs that removed. 8. Deep venous thrombosis prophylaxis. Continue. 9. Heart rate looks good. We have cut his metoprolol down. 10. Review of his orders: He is on melatonin 5 mg at bedtime, Remeron 45 mg at bedtime, risperidone 1.5 mg at bedtime, Flomax 0.4 mg at bedtime. I think he is on p.o. diltiazem, but I do not see that. I think we will start the p.o. diltiazem. He had to be started on IV Cardizem again. Continue cefepime 1 gram. cc: Sloan Ji MD
[2018-12-13] MEDS: ELIQUIS PO SCH ×2 (09:01→21:08)
[2018-12-13] MEDS: COLACE PO SCH ×2 (09:01→21:07)
[2018-12-13] MEDS: THERA M PLUS PO SCH (09:01)
[2018-12-13] MEDS: MIRALAX PO SCH (09:01)
[2018-12-13] MEDS: TOPROL XL PO SCH (09:01)
[2018-12-13] MEDS: CARDIZEM PO SCH ×3 (09:01→21:07)
[2018-12-13] MEDS: LASIX IV SCH (09:01)
[2018-12-13] MEDS: PROSCAR PO SCH (09:01)
[2018-12-13] MEDS: ZOFRAN IV PRN (09:42)
[2018-12-13] MEDS ORDERED: LASIX IV ONE (18:40)
[2018-12-13] MEDS ORDERED: LASIX ONE (18:51)
[2018-12-13] MEDS: FLOMAX PO SCH (21:07)
[2018-12-13] MEDS: RISPERDAL PO SCH (21:07)
[2018-12-13] MEDS: REMERON PO SCH (21:07)
[2018-12-13] MEDS: MELATONIN PO SCH (21:08)
[2018-12-13] MEDS: PERCOCET-5 PO PRN (23:52)
[2018-12-14] MEDS: MAXIPIME 1 GM in NS 50 ML IV SCH ×2 (02:16→15:04)
[2018-12-14] MEDS: DUONEB (A & A) INH SCH ×6 (03:31→22:45)
[2018-12-14 06:09] LABS: CALCIUM 8.2 mg/dL (8.8-10.2); CREATININE 1.3 mg/dL (0.7-1.2); POTASSIUM 3.7 mmol/L (3.5-5.1)
[2018-12-14] MEDS: PROTONIX PO SCH (06:25)
[2018-12-14] MEDS: SYNTHROID PO SCH (06:25)
--- NOTE | 2018-12-14 07:25 | PROGRESS NOTE ---
DATE: 12/14/2018 SUBJECTIVE: He is resting, sleeping comfortably, breathing comfortably. OBJECTIVE: Vital signs: Temperature 97.9 degrees, pulse 59, respirations 17, blood pressure 117/66. HEENT: Pupils are equal and round. Lungs: Clear in all lung monroy anterolateral. Cardiovascular: Regular rhythm and rate without murmur or S3. Abdomen: Soft. Skin: Warm and dry. Urine output 1900 mL. ASSESSMENT AND PLAN: 1. Acute hypercapnic respiratory failure. Continue supplemental O2. We will continue to diurese. Chest x-ray looks better and on clinical exam, he is improving. He did have some more rales yesterday evening and so gave him an extra dose of Lasix. 2. Suspect bilateral pneumonia. Continue to treat. 3. Exacerbation of chronic obstructive pulmonary disease. 4. Pulmonary venous hypertension. Continue to diurese. 5. Dementia. 6. Hypothyroidism. 7. Right facial skin cancer which will need to get followup. 8. Deep venous thrombosis prophylaxis. 9. Heart rate appears controlled. PRESENT ORDERS: She is on melatonin 5 mg at bedtime, Remeron 45 mg at bedtime, Risperdal 1.5 mg p.o. at bedtime, Flomax 0.4 mg at bedtime, acetylcysteine treatment b.i.d., albuterol ipratropium q.2 hours p.r.n., Eliquis 5 mg b.i.d., budesonide formoterol 1 puff b.i.d., Klonopin 0.5 mg t.i.d. p.r.n., Cardizem 30 mg p.o. t.i.d., Colace 100 mg b.i.d., Proscar 5 mg a day, Synthroid 25 mcg daily, cefepime 1 g IV q.12 hours, metoprolol 25 mg a day, multivitamin daily, oxycodone 1-1/2 tablets 5 mg tablet b.i.d. p.r.n., Protonix 40 mg a day, MiraLAX 17 g daily. We will put on some Cardizem drip again last night. I am going to increase the p.o. Cardizem to 60 mg 3 times a day. cc: Sloan Ji MD
[2018-12-14] MEDS: ELIQUIS PO SCH ×3 (07:57→21:19)
[2018-12-14] MEDS: TOPROL XL PO SCH ×2 (07:57→08:12)
[2018-12-14] MEDS: MIRALAX PO SCH ×2 (07:57→08:13)
[2018-12-14] MEDS: COLACE PO SCH ×3 (07:57→21:19)
[2018-12-14] MEDS: PROSCAR PO SCH ×2 (07:57→08:12)
[2018-12-14] MEDS: THERA M PLUS PO SCH ×2 (07:57→08:12)
[2018-12-14] MEDS ORDERED: LASIX ONE (08:35)
[2018-12-14] MEDS: MUCOMYST 20% INH SCH ×2 (08:43→19:36)
[2018-12-14] MEDS: SYMBICORT 160/4.5 MICROGM INHALER INH SCH ×3 (08:44→19:36)
--- NOTE | 2018-12-14 08:54 | Diag Imaging Result Doc PS360 ---
EXAM: CHEST-PORTABLE INDICATION: pulmonary venous htn TECHNIQUE: One view COMPARISON: 12/13/2018 FINDINGS: Interstitial and airspace infiltrates, most compatible with edema are approximately stable. No new consolidation is identified. Cardiac silhouette is stable. IMPRESSION: Stable chest. Electronically signed by Tom Sousa 12/14/2018 8:52 AM
[2018-12-14] MEDS ORDERED: CARDIZEM PO SCH (09:00)
[2018-12-14] MEDS: LASIX IV SCH ×2 (13:27→21:19)
[2018-12-14] MEDS: GENTAMICIN 0.3% OPH DROPS BOTH EYES SCH ×2 (15:04→21:19)
[2018-12-14] MEDS: CARDIZEM PO SCH ×2 (15:04→21:19)
[2018-12-14] MEDS: RISPERDAL PO SCH (21:19)
[2018-12-14] MEDS: REMERON PO SCH (21:19)
[2018-12-14] MEDS: MELATONIN PO SCH (21:19)
[2018-12-14] MEDS: FLOMAX PO SCH (21:19)
[2018-12-15] MEDS: MAXIPIME 1 GM in NS 50 ML IV SCH ×2 (01:52→14:41)
[2018-12-15] MEDS: DUONEB (A & A) INH SCH ×6 (03:37→22:53)
[2018-12-15] MEDS: SYNTHROID PO SCH (06:20)
[2018-12-15] MEDS: PROTONIX PO SCH (06:20)
--- NOTE | 2018-12-15 07:37 | PROGRESS NOTE ---
DATE: 12/15/2018 SUBJECTIVE: Mr. Soares feels better. He feels stronger. He feels like he could go back to [facility] today. We will see if we can get him back tomorrow. OBJECTIVE: Vital Signs: Temperature 98.3 degrees, pulse 107, respirations 17, blood pressure 119/57. HEENT: Pupils are equal and round. Lungs: Clear in all lung monroy. Cardiovascular: Regular rhythm and rate without murmur or S3. Abdomen: Soft. Skin: Warm and dry. IMAGING: Chest x-ray from yesterday: Stable chest, interstitial and airspace infiltrates most compatible with edema, proximally stable. No new consolidation. Cardiac silhouette stable. ASSESSMENT AND PLAN: 1. Acute hypercapnic respiratory failure. Continue supplementary O2. We will continue to diurese, but he appears better. I think he can go back to [facility] tomorrow. Check another chest x-ray. I think we will get a PA and lateral today. 2. Suspect bilateral pneumonia which has been treated. 3. Exacerbation of chronic obstructive pulmonary disease with pneumonia. 4. Pulmonary venous hypertension, which has responded to diuresis. 5. Dementia. 6. Hypothyroidism. 7. Right facial skin cancer, which we need to get follow up with. Suspect that will need to be removed. 8. Deep venous thrombosis prophylaxis. 9. Heart rate appears controlled. 10. Benign prostatic hypertrophy. He is on Flomax. REVIEW OF HIS ORDERS: I do not see any change. cc: Sloan Ji MD
[2018-12-15] MEDS: MUCOMYST 20% INH SCH ×2 (07:58→19:18)
[2018-12-15 08:43] LABS: ALLEN TEST YES; BE 4.1 mmoll (-3.0-3.0); BLOOD TYPE ARTERIAL; METHB 1.1 % (0.0-1.5); O2(CT) 21.3 mL/dL (15.0-23.0); O2HB 94.7 % (95.0-99.0); PCO2(98.6) 47 mmHg (35-45); PO2(98.6) 78 mmHg (60-100); SAMPLE BLOOD; SAO2 97.3 % (95.0-100.0); pH(98.6) 7.41 (7.35-7.45)
[2018-12-15 08:44] LABS: MODALITY NRB
[2018-12-15] MEDS: SYMBICORT 160/4.5 MICROGM INHALER INH SCH ×2 (09:00→19:18)
[2018-12-15] MEDS: MIRALAX PO SCH (09:03)
[2018-12-15] MEDS: LASIX IV SCH ×2 (09:03→20:38)
[2018-12-15] MEDS: PROSCAR PO SCH (09:03)
[2018-12-15] MEDS: COLACE PO SCH ×2 (09:04→20:38)
[2018-12-15] MEDS: ELIQUIS PO SCH ×2 (09:04→20:39)
[2018-12-15] MEDS: GENTAMICIN 0.3% OPH DROPS BOTH EYES SCH ×3 (09:04→16:33)
[2018-12-15] MEDS: TOPROL XL PO SCH (09:04)
[2018-12-15] MEDS: THERA M PLUS PO SCH (09:04)
[2018-12-15] MEDS: CARDIZEM PO SCH ×3 (09:04→20:39)
--- NOTE | 2018-12-15 14:58 | Diag Imaging Result Doc PS360 ---
EXAM: CHEST-2 VIEWS INDICATION: pulmonary venous htn. TECHNIQUE: 2 views COMPARISON: 12/14/2018 FINDINGS: Interstitial and airspace opacities bilaterally with a basilar predominance are unchanged. No new consolidation is identified. Cardiac silhouette is stable. IMPRESSION: Stable chest. Electronically signed by Tom Sousa 12/15/2018 2:55 PM
[2018-12-15] MEDS: PERCOCET-5 PO PRN (16:33)
[2018-12-15] MEDS: FLOMAX PO SCH (20:38)
[2018-12-15] MEDS: MELATONIN PO SCH (20:39)
[2018-12-15] MEDS: RISPERDAL PO SCH (20:39)
[2018-12-15] MEDS: REMERON PO SCH (20:39)
[2018-12-16] MEDS: MAXIPIME 1 GM in NS 50 ML IV SCH ×2 (02:01→15:14)
[2018-12-16] MEDS: DUONEB (A & A) INH SCH ×6 (03:44→23:25)
[2018-12-16] MEDS: SYNTHROID PO SCH ×2 (05:55→06:24)
[2018-12-16] MEDS: PROTONIX PO SCH ×2 (05:57→06:24)
--- NOTE | 2018-12-16 07:30 | EKG Report ---
Test Performed on : 12/14/2018 3:45:48 PM Test Reason : rhythm change Blood Pressure : / mmHG Vent. Rate : 066 BPM Atrial Rate : 066 BPM P-R Int : 184 ms QRS Dur : 098 ms QT Int : 386 ms P-R-T Axes : 045 -31 073 degrees QTc Int : 404 ms Sinus rhythm. with occasional premature ventricular complexes. Left axis deviation Minimal voltage criteria for LVH, may be normal variant Anterolateral infarct (cited on or before 08-DEC-2018) Abnormal ECG When compared with ECG of 13-DEC-2018 06:17, Questionable change in initial forces of Lateral leads Confirmed by Garrison SHEPHERD, Sloan Jimenez ([id number]) on 12/17/2018 9:59:59 AM
[2018-12-16 08:27] LABS: AGAP 11; BUN 33 mg/dL (8-22); CALCIUM 8.6 mg/dL (8.8-10.2); CHLORIDE 96 mmol/L (98-107); COSMO 284; CREATININE 1.1 mg/dL (0.7-1.2); ESTIMATED GFR > 60; GLUCOSE 92 mg/dL (70-104); MAGNESIUM 2.1 mg/dL (1.5-2.7); SODIUM 139 mmol/L (136-145); TCO2 32 mmol/L (25-35)
[2018-12-16] MEDS: SYMBICORT 160/4.5 MICROGM INHALER INH SCH ×2 (08:32→19:20)
[2018-12-16] MEDS: MUCOMYST 20% INH SCH ×2 (08:32→19:20)
[2018-12-16] MEDS: LASIX IV SCH ×2 (08:36→20:45)
[2018-12-16] MEDS: CARDIZEM PO SCH ×3 (08:36→20:46)
[2018-12-16] MEDS: COLACE PO SCH ×2 (08:36→20:46)
[2018-12-16] MEDS: MIRALAX PO SCH (08:36)
[2018-12-16] MEDS: PROSCAR PO SCH (08:36)
[2018-12-16] MEDS: GENTAMICIN 0.3% OPH DROPS BOTH EYES SCH ×3 (08:37→17:24)
[2018-12-16] MEDS: TOPROL XL PO SCH (08:37)
[2018-12-16] MEDS: THERA M PLUS PO SCH (08:37)
[2018-12-16] MEDS: ELIQUIS PO SCH ×2 (08:49→20:46)
--- NOTE | 2018-12-16 09:36 | PROGRESS NOTE ---
DATE: 12/16/2018 SUBJECTIVE: Mr. Soares says he feels fine, but his O2 saturation is still requiring quite a bit oxygen, still significant AA gradient. OBJECTIVE: Vital Signs: Temperature 98.4 degrees, pulse 63, respirations 15. HEENT: Pupils are equal and round. Neck: No distended neck veins. Lungs: Clear anterior and posterior. Cardiovascular: Regular rhythm and rate without murmur or S3. Abdomen: Soft. Skin: Warm and dry. Urine output is 2700 mL. LABORATORY DATA: Labs from this morning, sodium 139, potassium 4.0, chloride 96, BUN 33, creatinine 1.1. His chest x-ray, interstitial and airspace opacities bilateral with basilar prominence unchanged. No new consolidation. ASSESSMENT AND PLAN: 1. Hypercapnic respiratory failure. Continues to require quite a bit O2. I am going to ask Pulmonary to look about trying to get him back to [facility], but it just seems like we are not getting much improvement. I do not know if there is anything else we can try to improve his respiratory status and gas exchange. 2. Suspect bilateral pneumonia, which I feel has been treated. 3. Exacerbation of chronic obstructive pulmonary disease with pneumonia. 4. Pulmonary venous hypertension, which has responded to diuresis. Continue to diurese. 5. Dementia. 6. History of primary hypothyroidism. 7. Right facial skin cancer, which we need to get followed up when he leaves. 8. Deep venous thrombosis prophylaxis. 9. Heart rate is controlled. 10. Benign prostatic hypertrophy. 11. He came in with Gray catheter. I think he has a catheter dependent neurogenic bladder, so I am going to ask Pulmonary if they have any ideas. cc: lSoan Ji MD
[2018-12-16 10:08] LABS: ALLEN TEST YES; BE 8.1 mmoll (-3.0-3.0); BLOOD TYPE ARTERIAL; HCO3-(ACT) 30.8 mmoll (20.0-26.0); O2(CT) 19.7 mL/dL (15.0-23.0); PCO2(98.6) 47 mmHg (35-45); PO2(98.6) 50 mmHg (60-100); SAMPLE BLOOD; SAO2 88.1 % (95.0-100.0); THB 16.4 g/dL (11.5-17.4); pH(98.6) 7.46 (7.35-7.45)
[2018-12-16 10:09] LABS: MODALITY NRB; O2HB 85.7 % (95.0-99.0)
[2018-12-16] MEDS ORDERED: VANCOMYCIN IV PER PHARMACY MISC SCH (10:30)
[2018-12-16 11:00] LABS: BASO# 0.04 X1000 (0.0-0.2); BASO% 0.6 % (0.0-0.8); EOS# 0.92 X1000 (0.0-0.7); EOS% 13.3 % (0.0-10.0); HEMATOCRIT 49.5 % (42.0-52.0); HEMOGLOBIN 16.2 g/dL (14.0-18.0); LYMPH% 10.1 % (20.5-51.1); MCH 29.3 PG (27-31); MCHC 32.7 g/dL (33-37); MCV 89.7 FL (81-99); MONO# 0.71 X1000 (0.11-0.59); MONO% 10.2 % (1.7-9.3); MPV 10.2 FL (7.4-10.4); NEUT# 4.56 X1000 (1.4-6.5); NEUT% 65.8 % (42.2-75.2); PLT 168 X1000 (130-400); RBC 5.52 XMIL (4.7-6.1); RDW 14.2 % (11.5-14.5); WBC 6.93 X1000 (4.8-10.8)
[2018-12-16] MEDS: PERCOCET-5 PO PRN ×2 (12:04→20:46)
[2018-12-16] MEDS: VANCOMYCIN 1,500 MG in NS 250 ML IV SCH (13:18)
[2018-12-16] MEDS: REMERON PO SCH (20:46)
[2018-12-16] MEDS: MELATONIN PO SCH (20:46)
[2018-12-16] MEDS: RISPERDAL PO SCH (20:46)
[2018-12-16] MEDS: FLOMAX PO SCH (20:46)
--- NOTE | 2018-12-16 22:09 | PULMONOLOGY CONSULTATION ---
DATE: 12/16/2018 REQUESTING PHYSICIAN: Dr. Sloan Ji. REASON FOR CONSULTATION: Help with evaluation and treatment. HISTORY OF PRESENT ILLNESS: Mr. Soares CT scan was reviewed by this practitioner and demonstrates severe COPD, venous hypertension, tracheobronchial malacia with possible mucus impaction versus tumor in the left mainstem with several rib fractures which were not present 06/22/2015. The patient has been on nonrebreather or BiPAP since admission. Pulmonary consultation was requested. PAST MEDICAL HISTORY/PROBLEM LIST: 1. Chronic obstructive pulmonary disease. 2. Dementia. 3. Depression. 4. Schizoaffective disorder with delusional features. 5. Coronary artery disease as per above. 6. BPH. 7. History of prostate cancer. 8. Lung cancer noted per Dr. Tiwari. I cannot find additional information on that diagnose. 9. Hypothyroidism. 10. History atrial fibrillation . SOCIAL HISTORY: By report he no longer smokes while living at [facility]. Previously had a 60+ pack-year history for tobacco. REVIEW OF SYSTEMS: Limited. He reports "I am not sure. " PHYSICAL EXAM: Reveals a chronically ill-appearing demented white male. He currently is on BiPAP and reports that this helps his breathing. BP 122/66, heart rate 60, respiratory rate 16, oxygen saturation 96%.HEENT: Pupils are equal and reactive. Oropharynx appears clear but evaluation is limited. Neck: Supple. Chest: Reveals coarse rhonchi bilaterally with prolonged expiratory phase. Cardiac: Distant heart sounds, regular rate. Abdomen: Soft. Extremities: Reveal trace edema. LABORATORIES: White blood count 6.93, hemoglobin 16.2, platelet count 168,000. Arterial blood gas on nonrebreather pH 7.46, pCO2 of 47, PO2 of 50. Arterial blood gas on admission to the hospital pH 7.36, pCO2 of 68, pO2 60 on nonrebreather. Sodium 130, potassium 4.0, chloride 96, bicarbonate level 32, anion gap 11, BUN 33, creatinine 1.1. Chest x-ray reveals stable bibasilar infiltrates. IMPRESSION: 1. 83-year-old with acute on chronic hypoxemic respiratory failure. 2. Chronic hypercapnic respiratory failure. 3. Bibasilar infiltrates consistent with pneumonia. With pattern, aspiration is suspected. 4. 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 5. Possible endobronchial lesion in the left mainstem. He is not a candidate for aggressive intervention such as bronchoscopy. 6. Severe chronic obstructive pulmonary disease. 7. Dementia. RECOMMENDATIONS: 1. Cycle BiPAP at bedtime and p.r.n. He might be a candidate for Trilogy device. 2. Continue bronchial hygiene with nebulizers and Mucomyst. 3. Continue cefepime. Will add vancomycin. 4. Agree with speech therapy evaluation. 5. Agree with palliative care consultation. The patient's prognosis is poor. 6. Will check CEA level in the morning. As outlined above, he is not a candidate for aggressive evaluation or intervention given his dementia, advanced emphysema and chronic hypoxemic and hypercapnic respiratory failure. cc: Alberto Taylor MD MTDD
[2018-12-17] MEDS: MAXIPIME 1 GM in NS 50 ML IV SCH ×2 (01:33→14:26)
[2018-12-17] MEDS: DUONEB (A & A) INH SCH ×6 (03:15→23:25)
[2018-12-17 04:27] LABS: ALLEN TEST YES; BE 4.6 mmoll (-3.0-3.0); BLOOD TYPE ARTERIAL; HCO3-(ACT) 28.4 mmoll (20.0-26.0); METHB 1.4 % (0.0-1.5); O2(CT) 20.8 mL/dL (15.0-23.0); O2HB 93.6 % (95.0-99.0); PCO2(98.6) 48 mmHg (35-45); PO2(98.6) 73 mmHg (60-100); SAMPLE BLOOD; SAO2 97.2 % (95.0-100.0); THB 15.8 g/dL (11.5-17.4); pH(98.6) 7.41 (7.35-7.45)
[2018-12-17 04:28] LABS: MODALITY BI PAP
[2018-12-17] MEDS: SYNTHROID PO SCH ×2 (04:48→06:08)
[2018-12-17] MEDS: PROTONIX PO SCH ×2 (04:48→06:07)
[2018-12-17 05:32] LABS: HEMATOCRIT 49.3 % (42.0-52.0); HEMOGLOBIN 15.9 g/dL (14.0-18.0); WBC 7.53 X1000 (4.8-10.8)
[2018-12-17 05:33] LABS: BASO# 0.04 X1000 (0.0-0.2); BASO% 0.5 % (0.0-0.8); EOS# 0.97 X1000 (0.0-0.7); EOS% 12.9 % (0.0-10.0); IMM GRAN# 0.02 X1000 (0.0-0.04); IMM GRAN% 0.3 % (0.0-0.5); LYMPH# 0.99 X1000 (1.2-3.4); LYMPH% 13.1 % (20.5-51.1); MCH 29.4 PG (27-31); MCHC 32.3 g/dL (33-37); MCV 91.3 FL (81-99); MONO# 0.86 X1000 (0.11-0.59); MONO% 11.4 % (1.7-9.3); MPV 10.7 FL (7.4-10.4); NEUT# 4.65 X1000 (1.4-6.5); NEUT% 61.8 % (42.2-75.2); PLT 169 X1000 (130-400); RDW 14.3 % (11.5-14.5)
[2018-12-17 05:52] LABS: ALB/GLOB RATIO 0.9; ALBUMIN 3.6 g/dL (3.5-5.0); CALCIUM 8.9 mg/dL (8.8-10.2); CREATININE 1.2 mg/dL (0.7-1.2); MAGNESIUM 2.2 mg/dL (1.5-2.7); PHOSPHORUS 3.1 mg/dL (2.7-4.5); POTASSIUM 3.9 mmol/L (3.5-5.1); TOTAL BILIRUBIN 0.4 mg/dL (0.20-1.00); TOTAL PROTEIN 7.8 g/dL (6.3-8.3)
[2018-12-17] MEDS: SYMBICORT 160/4.5 MICROGM INHALER INH SCH ×2 (07:24→19:40)
[2018-12-17] MEDS: MUCOMYST 20% INH SCH ×2 (07:24→19:40)
--- NOTE | 2018-12-17 08:05 | Diag Imaging Result Doc PS360 ---
CHEST-PORTABLE - 12/17/2018 INDICATION: abnormal exam COMPARISON: 12/15/2018 FINDINGS: Stable moderately low lung volumes. Stable hazy opacities in the lung bases bilaterally. No new infiltrates. No pneumothorax or large pleural effusion. Heart size remains normal. Stable pulmonary vascular congestion. IMPRESSION: No change from prior. Electronically signed by Mark Orosco 12/17/2018 8:02 AM
[2018-12-17] MEDS: ELIQUIS PO SCH ×2 (08:19→20:21)
[2018-12-17] MEDS: CARDIZEM PO SCH ×3 (08:19→21:14)
[2018-12-17] MEDS: THERA M PLUS PO SCH (08:19)
[2018-12-17] MEDS: PROSCAR PO SCH (08:19)
[2018-12-17] MEDS: TOPROL XL PO SCH (08:19)
[2018-12-17] MEDS: LASIX IV SCH ×2 (08:19→20:21)
[2018-12-17] MEDS: COLACE PO SCH ×2 (08:19→20:23)
[2018-12-17] MEDS: GENTAMICIN 0.3% OPH DROPS BOTH EYES SCH ×3 (08:19→21:14)
[2018-12-17] MEDS: MIRALAX PO SCH (08:20)
--- NOTE | 2018-12-17 09:46 | EKG Report ---
Test Performed on : 12/17/2018 09:39:56 AM Test Reason : Rhythm change, Increased HR Blood Pressure : / mmHG Vent. Rate : 149 BPM Atrial Rate : 159 BPM P-R Int : 000 ms QRS Dur : 098 ms QT Int : 308 ms P-R-T Axes : 000 -29 111 degrees QTc Int : 485 ms Atrial fibrillation. with rapid ventricular response. ST & T wave abnormality, consider lateral ischemia Abnormal ECG When compared with ECG of 14-DEC-2018 15:45, (Unconfirmed) Atrial fibrillation. has replaced Sinus rhythm. Vent. rate has increased BY [address] now depressed in Inferior leads ST now depressed in Lateral leads Confirmed by Garrison SHEPHERD, Sloan Jimenez ([id number]) on 12/17/2018 10:02:30 AM
[2018-12-17] MEDS: VANCOMYCIN 1,500 MG in NS 250 ML IV SCH (12:22)
--- NOTE | 2018-12-17 12:54 | EKG Report ---
Test Performed on : 12/17/2018 10:23:27 AM Test Reason : Rhythm change Blood Pressure : / mmHG Vent. Rate : 078 BPM Atrial Rate : 078 BPM P-R Int : 186 ms QRS Dur : 096 ms QT Int : 382 ms P-R-T Axes : 080 -09 084 degrees QTc Int : 435 ms Sinus rhythm. with frequent premature ventricular complexes. Minimal voltage criteria for LVH, may be normal variant Anterior infarct (cited on or before 17-DEC-2018) Abnormal ECG When compared with ECG of 17-DEC-2018 10:22, (Unconfirmed) No significant change was found Confirmed by Garrison SHEPHERD, Sloan Jimenez ([id number]) on 12/18/2018 9:44:52 AM
--- NOTE | 2018-12-17 13:16 | CARDIOLOGY CONSULTATION ---
DATE: 12/17/2018 Cardiology was consulted for atrial fibrillation. Patient has history of atrial fibrillation. The patient is admitted with respiratory failure. An 83-year-old gentleman who has dementia, unable to give history. History was obtained from the chart. Was admitted from [facility] with hypoxia and respiratory distress. He today went into atrial fibrillations, subsequently converted to sinus rhythm. He has known history of paroxysmal atrial fibrillation. At the time of my examination, patient does not complain of any chest pain. He says he did feel the palpitations this morning. However, feels better now his shortness of breath as he feels better as well. When he was admitted, his chest x-ray showed bilateral infiltrates consistent with pneumonia or edema. His proBNP was 769. PAST MEDICAL HISTORY: 1. Patient was admitted at [facility] in March 2018. At that time, he had paroxysmal atrial fibrillation and was converted to sinus rhythm. 2. Had a left mandibular mass. 3. Had respiratory failure. 4. His echocardiogram 03/28/2018 revealed ejection fraction of 60% to 65% with left ventricular hypertrophy. 5. He had bilateral lower lobe consolidation during his hospitalization by CT scan at [facility] 04/03/2018. He had aspiration pneumonia in both lungs. 6. Dementia. 7. Paroxysmal atrial fibrillation. 8. History of lung cancer. 9. Hypothyroidism. 10. COPD. 11. Prostate cancer. HOME MEDICATIONS: Included: 1. Tamsulosin 0.4 mg at bedtime. 2. Lyrica 75 mg p.o. t.i.d. 3. Clonazepam. 4. Nebulizers. 5. Multivitamins. 6. Eliquis 5 mg p.o. b.i.d. 7. Bupropion 75 mg. 8. Vitamin D. 9. Docusate. 10. Duloxetine 60. 11. Finasteride 5. 12. Lasix 20 mg a day. 13. Metoprolol 50 mg a day. 14. Senna. 15. Inhalers. 16. Symbicort. 17. He was on Augmentin at home. 18. Levothyroxine 25. 19. Risperidone. CURRENT MEDICATIONS: Include: 1. He was started on Cardizem 60 mg 3 times a day. 2. In addition, he is on cefepime. 3. Lasix 40 mg IV twice daily. PHYSICAL EXAMINATION: On examination, blood pressure was 118/64. He had bilateral expiratory wheeze. First and second heart sounds were heard. There was no S3 gallop. Abdomen was obese soft, nontender. There was no guarding or rigidity. Bowel sounds were heard.Central Nervous System: Alert. Was moving all 4 extremities. Examination of extremities revealed trace edema. ASSESSMENT AND PLAN: Mr. Familia Soares is an 83-year-old gentleman with history of chronic obstructive pulmonary disease, respiratory failure, history of aspiration pneumonia, dementia, paroxysmal atrial fibrillation. He is admitted with respiratory failure and shortness of breath. From a cardiac standpoint: 1. His recent echocardiogram in December 2018 revealed ejection fraction of 55% to 60% percent. He has paroxysmal atrial fibrillation documented. He has been started on Cardizem. We will change his Cardizem to Cardizem CD 180 mg from morning. Continue with Toprol. 2. For anticoagulation therapy, he is on Eliquis 5 mg twice daily. 3. He has significant respiratory failure and has had pneumonia. He is on antibiotics. I have not made any other changes to his medication. cc: Jan Lowry MD
[2018-12-17] MEDS: PERCOCET-5 PO PRN ×2 (14:50→20:23)
[2018-12-17] MEDS: ZOFRAN IV PRN (18:19)
[2018-12-17] MEDS ORDERED: PERCOCET-5 PO ONE (20:06)
[2018-12-17] MEDS: FLOMAX PO SCH (20:21)
[2018-12-17] MEDS: RISPERDAL PO SCH (20:22)
[2018-12-17] MEDS: MELATONIN PO SCH (20:23)
[2018-12-17] MEDS: REMERON PO SCH (20:23)
--- NOTE | 2018-12-17 21:37 | PROGRESS NOTE ---
DATE: 12/17/2018 SUBJECTIVE: The patient is lethargic. He is currently on a non-rebreather. OBJECTIVE: Vital Signs: Temperature 98.1 degrees, blood pressure 124/64, heart rate 60, respirations 16, O2 saturation 95% on non-rebreather. General: This is a chronically ill- appearing elderly male lying in bed in no acute distress. Head: Normocephalic, atraumatic. Heart: S1, S2. Normal. Regular rate and rhythm. Lungs: Equal air entry bilaterally. No crackles. No rales. Abdomen: Positive bowel sounds. Soft, nontender, nondistended. Extremities: No edema. No cyanosis. Neurologic: The patient is lethargic. LABORATORY DATA: White blood cell count 7.5, hemoglobin 15, hematocrit 49, platelets 169,000. ABG: pH of 7.41, pCO2 is 48. ASSESSMENT AND PLAN 1. Acute on chronic hypoxemic and hypercapnic respiratory failure. 2. Aspiration pneumonia. Continue on IV antibiotic therapy and NPO status. 3. Right facial skin cancer. Aware 4. Possible endobronchial tumor. Aware 5. Dementia. Aware. 6. Atrial fibrillation. Continue on cardizem, toprol XL and eliquis. 7. Severe COPD. Continue on bronchodilator therapy and oxygen. 8. BPH. Continue on flomax. 9. Hypothyroidism. Continue on synthroid. Disposition: The patient is a full code. His niece is his only next of kin and she is scheduled to meet with palliative care today to discuss goals of care. cc: Sonal Tiwari MD MTDD
--- NOTE | 2018-12-17 21:47 | PULMONOLOGY PROGRESS NOTE ---
DATE: 12/17/2018 SUBJECTIVE: The patient is off BiPAP. He indicates his breathing has improved. OBJECTIVE: Vital Signs: He has been afebrile for the last 24 hours. Blood pressure 110/56, heart rate 60, respiratory rate 16, oxygen saturation 95% on non-rebreather. HEENT: Pupils are equal and reactive. Oropharynx appears clear. Neck: Supple. Chest: Crackles and rhonchi bilaterally. Cardiac: S1, S2. Abdomen: Soft. Extremities: Trace edema. LABORATORIES: Chest x-ray reveals shallow lung volumes with bibasilar infiltrates, without change. White blood count 7.53, hemoglobin 8.9, platelet count 169,000. Sodium 141, potassium 3.9, chloride 95, bicarbonate 33, BUN 35, creatinine 1.2. IMPRESSION: An 83-year-old with: 1. Acute on chronic hypoxemic respiratory failure. 2. Chronic hypercapnic respiratory failure. 3. Bibasilar pneumonia. 4. Tracheobronchomalacia. 5. Possible endobronchial lesion, identified on CT scan. 6. Severe chronic obstructive pulmonary disease. 7. Dementia. 8. Overall prognosis is poor. RECOMMENDATIONS: 1. Continue to cycle BiPAP at bedtime and p.r.n. 2. Continue broad-spectrum gram-negative and gram-positive antibiotics. 3. Palliative Care evaluation in progress. The patient's prognosis is poor. cc: Alberto Taylor MD
[2018-12-17] MEDS: KLONOPIN PO PRN (22:44)
[2018-12-18] MEDS: PERCOCET-5 PO PRN ×3 (00:25→22:00)
[2018-12-18] MEDS: MAXIPIME 1 GM in NS 50 ML IV SCH ×2 (02:00→16:09)
[2018-12-18] MEDS: DUONEB (A & A) INH SCH ×6 (03:25→23:34)
[2018-12-18] MEDS: PROTONIX PO SCH ×2 (05:03→06:01)
[2018-12-18] MEDS: SYNTHROID PO SCH ×2 (05:03→06:01)
[2018-12-18] MEDS: KLONOPIN PO PRN ×2 (05:03→19:55)
[2018-12-18 05:16] LABS: ALLEN TEST YES; BE 2.7 mmoll (-3.0-3.0); BLOOD TYPE ARTERIAL; HCO3-(ACT) 26.8 mmoll (20.0-26.0); METHB 0.1 % (0.0-1.5); O2(CT) 18.4 mL/dL (15.0-23.0); PO2(98.6) 55 mmHg (60-100); SAMPLE BLOOD; SAO2 91.7 % (95.0-100.0); THB 14.8 g/dL (11.5-17.4); pH(98.6) 7.36 (7.35-7.45)
[2018-12-18 05:24] LABS: MODALITY NRB; O2HB 88.8 % (95.0-99.0); PCO2(98.6) 52 mmHg (35-45)
[2018-12-18 05:46] LABS: HEMATOCRIT 47.7 % (42.0-52.0); HEMOGLOBIN 15.4 g/dL (14.0-18.0); MCHC 32.3 g/dL (33-37); MPV 10.9 FL (7.4-10.4); RBC 5.13 XMIL (4.7-6.1); RDW 14.5 % (11.5-14.5); WBC 6.67 X1000 (4.8-10.8)
[2018-12-18 06:12] LABS: ALB/GLOB RATIO 0.8; ALBUMIN 3.4 g/dL (3.5-5.0); CALCIUM 8.7 mg/dL (8.8-10.2); CREATININE 1.3 mg/dL (0.7-1.2); POTASSIUM 3.8 mmol/L (3.5-5.1); TOTAL BILIRUBIN 0.45 mg/dL (0.20-1.00); TOTAL PROTEIN 7.8 g/dL (6.3-8.3)
[2018-12-18] MEDS: MUCOMYST 20% INH SCH ×2 (07:11→20:00)
[2018-12-18] MEDS: SYMBICORT 160/4.5 MICROGM INHALER INH SCH ×2 (07:11→20:00)
--- NOTE | 2018-12-18 07:33 | Diag Imaging Result Doc PS360 ---
CHEST-PORTABLE - 12/18/2018 INDICATION: dyspnea COMPARISON: 12/17/2018 FINDINGS: Stable cardiomegaly and pulmonary vascular congestion. There is slight improvement in patchy left-sided infiltrates, with significant worsening in the right midlung and right base. There is also worsening ill-defined background interstitial opacities/pulmonary edema. No pneumothorax or large pleural effusion. IMPRESSION: 1. Shifting atelectasis. Pulmonary edema. Overall worsening from prior. 2. Cardiomegaly and pulmonary vascular congestion, stable. Electronically signed by Mark Orosco 12/18/2018 7:31 AM
[2018-12-18] MEDS: LASIX IV SCH ×3 (08:17→20:17)
[2018-12-18] MEDS: COLACE PO SCH ×3 (08:17→20:16)
[2018-12-18] MEDS: THERA M PLUS PO SCH (08:17)
[2018-12-18] MEDS: MIRALAX PO SCH (08:17)
[2018-12-18] MEDS: GENTAMICIN 0.3% OPH DROPS BOTH EYES SCH ×3 (08:17→20:17)
[2018-12-18] MEDS: TOPROL XL PO SCH (08:17)
[2018-12-18] MEDS: ELIQUIS PO SCH ×3 (08:17→20:16)
[2018-12-18] MEDS: PROSCAR PO SCH (08:17)
[2018-12-18] MEDS: CARDIZEM CD PO SCH (08:17)
[2018-12-18] MEDS: MORPHINE IV PRN ×2 (11:52→15:18)
[2018-12-18] MEDS: VANCOMYCIN 1,500 MG in NS 250 ML IV SCH (14:08)
--- NOTE | 2018-12-18 16:41 | PROGRESS NOTE ---
DATE: 12/18/2018 SUBJECTIVE: The patient is a lot worse today. He is currently on high-flow nasal cannula. OBJECTIVE: Vital Signs: Temperature 98 degrees, blood pressure 137/63, heart rate 70, respirations 16, O2 saturation 93% on high-flow ox, intake 550, output 950. General: This is a chronically ill-appearing elderly male lying in bed in no acute distress. HEENT: Normocephalic atraumatic. Heart: S1, S2 normal. Regular rate and rhythm. Lungs: Coarse breath sounds bilaterally. Abdomen: Positive bowel sounds. Soft, nontender, nondistended. Extremities: No edema, no cyanosis. Neurologic: The patient is lethargic. LABS: White blood cell count 6.6, hemoglobin 15, hematocrit 47, platelets 153,000. Sodium 140, potassium 3.8, chloride 97, CO2 28, BUN 42, creatinine 1.3, glucose 68, AST 16, ALT 13, alkaline phosphatase 92, albumin 3.4. Chest x-ray shows worsening pulmonary edema. ASSESSMENT AND PLAN: 1. Acute on chronic hypoxemic and hypercapnic respiratory failure. Continue with supportive care. 2. Aspiration pneumonia. Continue with antibiotics and NPO status. 3. Possible right facial skin cancer. Aware. 4. Possible endobronchial tumor. Aware. 5. Acute pulmonary edema. Continue with diuretic therapy. 6. Severe chronic obstructive pulmonary disease. Continue on bronchodilator therapy and oxygen. 7. Hypothyroidism. Continue on Synthroid. 8. Urinary retention. The patient has benign prostatic hypertrophy. He is on Flomax. However, he is still retaining urine. Will consult with the urologist. DISPOSITION: I had a discussion with Carissa Soares this morning and I discussed the patient's overall poor prognosis and she has decided to make the patient a DNR level 1. She states that she wants to think further about possibly making the patient comfort measures. cc: Sonal Tiwari MD MTDD
[2018-12-18] MEDS ORDERED: XYLOCAINE 2% JELLY UROJECT UR ONE (18:15)
[2018-12-18] MEDS: REMERON PO SCH ×2 (19:54→20:18)
[2018-12-18] MEDS: FLOMAX PO SCH ×2 (19:55→20:17)
[2018-12-18] MEDS: RISPERDAL PO SCH ×2 (19:55→20:18)
[2018-12-18] MEDS: MELATONIN PO SCH ×2 (19:55→20:17)
--- NOTE | 2018-12-18 20:20 | CONSULTATION ---
DATE OF CONSULTATION: 12/18/2018 ATTENDING AND REFERRING PHYSICIAN: Hospitalist. HISTORY OF PRESENT ILLNESS: This 83-year-old male with a long history of dementia and schizoaffective disorder and severe COPD was admitted with respiratory failure. The patient cannot give a history. He states he is having pain in the lower abdominal area. The patient's nurse states that the catheter stopped draining. There was bloody efflux in the Gray drainage bag, but the Gray catheter was hanging free, not connected to drainage. The catheter was completely obstructed with clots. There is a mention of prostate cancer on the patient's chart, but it is not documented. He was last seen in the Urology Clinic in 2015. He did not have prostate cancer then. He was going to be scheduled for transurethral resection of the prostate in an attempt to relieve his urinary retention. The patient and family decided against that. The patient's PSA was 19 in June 2013, but he was in urinary retention at that time. A CT scan in 2012 revealed a very large prostate with a thickened bladder wall with trabeculations. PAST MEDICAL HISTORY: Severe COPD, history of respiratory failure, coronary artery disease, paroxysmally atrial fibrillation, hypothyroidism, urinary retention. HOME MEDICATIONS: Home medications are documented on the chart and include Flomax and Proscar. ALLERGIES: There are no known drug allergies. SOCIAL HISTORY: He lives in a care home. Long history of tobacco abuse, stopped about 6 years ago. ETOH use is negative. REVIEW OF SYSTEMS: There are no known drug allergies. He cannot answer questions appropriately. PHYSICAL EXAMINATION: General: A thin, age apparent, normally developed white male who is cooperative. HEENT: Normal for age. He does have poor dentition. Lungs: Scattered rhonchi. Distant breath sounds. Cardiovascular: Regular rate and rhythm. Abdomen: Mildly protuberant, soft. Direct tenderness with a palpable bulge in the suprapubic area. No guarding or rebound. Normal bowel sounds. Genitourinary: Uncircumcised male. There is a Gray catheter that is not connected to a drainage bag that is not draining. It is obvious that the Gray catheter has been indwelling for a long while since there is starting to be hypospadias. Both testes are down and palpably normal. Rectal: Deferred. Extremities: No clubbing, cyanosis or edema. Neurologic: No focal deficits. LABORATORY EVALUATION: Normal serum electrolytes, BUN 42, creatinine 1.3. CBC has a white count of 6.67, hemoglobin 15.4, hematocrit of 47.7 and platelets are 153,000. A urine culture from the 10 of December had no pathogen in growth. IMPRESSION: 1. Hematuria. He is on Eliquis and this could be from the patient pulling on his Gray catheter. 2. Enlarged prostate with urinary retention. 3. No documentation of prostate cancer. He was last seen in the clinic in 2016 and there was no prostate cancer then. RECOMMENDATIONS: The obstructed Gray catheter was removed. 20 mL of 2% viscous lidocaine was placed in the urethra and held for 5 minutes. The patient was prepped and draped sterilely for Gray catheter placement. A 16-Danish silicone Gray was then passed through the urethra and after some manipulation, pushed up into the bladder. Bloody urine returned and this was irrigated clear. This will need to be irrigated as needed or he will clot off again. Thank you for this consultation. cc: Ciaran Norris MD
[2018-12-18 20:24] LABS: URINE SOURCE CATH
[2018-12-18 20:30] LABS: BILIRUBIN URINE NEGATIVE (NEGATIVE); BLOOD URINE LARGE (NEGATIVE); COLOR BROWN; GLUCOSE URINE NEGATIVE (NEGATIVE); KETONE URINE 20 mg/dL (NEGATIVE); LEUKOCYTES URINE SMALL (NEGATIVE); NITRITE URINE NEGATIVE (NEGATIVE); PROTEIN URINE 200 mg/dL (NEGATIVE); SP GRAVITY URINE 1.017; TURBIDITY URINE TURBID (CLEAR); UR EPITHELIAL CELLS <10 /HPF (<10); URINE BACTERIA NEGATIVE /HPF; URINE RBC TNTC /HPF (<10); UROBILINOGEN URINE NORMAL (NORMAL)
[2018-12-18 20:32] LABS: URINE CASTS NONE SEEN; URINE YEAST NONE SEEN
--- NOTE | 2018-12-18 22:13 | PULMONOLOGY PROGRESS NOTE ---
DATE: 12/18/2018 SUBJECTIVE: The patient has been placed on high-flow oxygen. The patient had urinary obstruction with bleeding earlier today and had his Gray catheter replaced by Dr. Norris. OBJECTIVE: Vital Signs: The patient has been afebrile for the last 24 hours. Blood pressure 137/63, heart rate 70, respiratory rate 16, oxygen saturation 93% on high-flow O2. HEENT: Pupils are equal and reactive. Oropharynx is clear. Neck: Supple. Chest: Reveals prolonged expiratory phase with scattered crackles in the bases. Cardiac: S1, S2. Abdomen: Soft. Extremities: Trace to +1 edema. LABORATORIES: Chest x-ray in improved on the left side with decreased infiltrates but with increased filtrates in the right mid and right lung base. White blood count 6.67, hemoglobin 15.4, platelet 153,000. Sodium 140, potassium 3.8, chloride 97, bicarbonate 28, BUN 42, creatinine 1.3. Arterial blood gas on non-rebreather, pH 7.36, pCO2 of 52, PO2 of 55. IMPRESSION: An 83-year-old with 1. Severe chronic obstructive pulmonary disease. 2. Acute on chronic hypoxemic respiratory failure. 3. Hypercapnic respiratory failure. 4. Bibasilar pneumonia with probable recurrent aspiration. 5. Tracheobronchomalacia. 6. Possible endobronchial lesion identified on CT scan. 7. Dementia. 8. Urinary tract obstruction with hematuria. RECOMMENDATIONS: 1. Continue to cycle BiPAP/high-flow O2 at bedtime and p.r.n. 2. Continue broad-spectrum antibiotics. 3. End of life discussions have been held with the family. I agree with current code status, which will allow patient to have a natural . cc: Alberto Taylor MD
[2018-12-19] MEDS: MORPHINE IV PRN ×4 (00:32→18:41)
[2018-12-19] MEDS: DUONEB (A & A) INH SCH ×3 (03:30→11:21)
[2018-12-19] MEDS: PERCOCET-5 PO PRN (03:45)
[2018-12-19] MEDS: MAXIPIME 1 GM in NS 50 ML IV SCH (04:10)
[2018-12-19] MEDS: PROTONIX PO SCH ×2 (05:08→06:00)
[2018-12-19] MEDS: KLONOPIN PO PRN (05:08)
[2018-12-19] MEDS: SYNTHROID PO SCH ×2 (05:08→06:01)
[2018-12-19 05:17] LABS: HEMATOCRIT 47.7 % (42.0-52.0); HEMOGLOBIN 15.5 g/dL (14.0-18.0); MCHC 32.5 g/dL (33-37); MCV 92.3 FL (81-99); MPV 10.7 FL (7.4-10.4); RBC 5.17 XMIL (4.7-6.1); RDW 14.5 % (11.5-14.5); WBC 8.01 X1000 (4.8-10.8)
[2018-12-19 05:53] LABS: CREATININE 1.3 mg/dL (0.7-1.2); POTASSIUM 3.7 mmol/L (3.5-5.1)
[2018-12-19] MEDS: MUCOMYST 20% INH SCH (07:45)
[2018-12-19] MEDS: SYMBICORT 160/4.5 MICROGM INHALER INH SCH (07:46)
[2018-12-19] MEDS: THERA M PLUS PO SCH (09:41)
[2018-12-19] MEDS: COLACE PO SCH (09:41)
[2018-12-19] MEDS: LASIX IV SCH (09:57)
[2018-12-19] MEDS: MIRALAX PO SCH ×2 (09:58→10:02)
[2018-12-19] MEDS: GENTAMICIN 0.3% OPH DROPS BOTH EYES SCH (09:58)
[2018-12-19] MEDS: ELIQUIS PO SCH ×2 (09:58→10:03)
[2018-12-19] MEDS: PROSCAR PO SCH (09:58)
[2018-12-19] MEDS: CARDIZEM CD PO SCH (09:59)
[2018-12-19] MEDS: TOPROL XL PO SCH (09:59)
[2018-12-19] MEDS: TRANSDERM-SCOP TD SCH (13:04)
[2018-12-19] MEDS: ATIVAN IV PRN ×4 (13:04→21:17)
[2018-12-19] MEDS: ATROPINE 1 % OPHTH SOLN SL PRN (18:02)
--- NOTE | 2018-12-20 03:54 | PROGRESS NOTE ---
DATE: 12/19/2018 SUBJECTIVE: The patient is lethargic today. He is unable to take any oral medications, and he is noticeably short of breath on the nonrebreather. OBJECTIVE: Vital Signs: Temperature 97.8 degrees, blood pressure 106/54, heart rate 40, respiratory rate 22, O2 saturations 96% on the nonrebreather mask. General: This is a chronically ill appearing, lethargic male, lying in bed. Heart: S1, S2, normal. Bradycardic. Lungs: Coarse breath sounds bilaterally. Abdomen: Positive bowel sounds. Soft, nontender, nondistended. Extremities: 1+ edema. Neurologic: The patient is comatose. ASSESSMENT: 1. Acute on chronic hypoxemic and hypercapnic respiratory failure. 2. Aspiration pneumonia. 3. Possible endobronchial tumor. 4. Possible right facial skin cancer. 5. Acute pulmonary edema. 6. Severe chronic obstructive pulmonary disease. 7. Urinary retention. 8. Hypothyroidism. 9. Atrial fibrillation. PLAN: I discussed the patient's declining medical condition with the patient's next of kin, Christal Rodger, and she has decided to make the patient comfort measures only. Will discontinue all medications except for medications to keep the patient comfortable. The patient will be transferred to a private room. cc: Sonal Tiwari MD
[2018-12-20] MEDS: ATIVAN IV PRN ×3 (04:20→19:28)
[2018-12-20] MEDS: MORPHINE IV PRN ×2 (10:29→14:46)
--- NOTE | 2018-12-20 15:53 | ED EKG INTERP ---
This chart was entered by Catracho Amaya Scribe, acting as scribe for Pierre Garcia MD. EKG Interpretation - EKG Time of EKG reading by physician:: 08:03 EKG Read and Signed by:: Pierre Garcia EKG Interpretation (*Must complete 3 of following elements*): Abnormal (Sinus bradycardia Anterior infarct, age undetermined) Rate: 58 Rhythm: Sinus bradycardia Irving: normal QRS: normal DC Interval: normal ST Wave: normal Comments: Abnormal ECG Attestation - Physician/ MARGARITA Attestation The physician spent face to face time with patient:: Yes Advanced Practice Provider documentation review:: Supervising physician onsite and consulted in the evaluation and care of this patient. The physician did have a face to face encounter with the patient. This chart was documented by the indicated scribe, (Catracho Amaya Scribe) and accurately reflects the services I performed and decisions made by me, Pierre Garcia MD, as attested by the provider's signature.
--- NOTE | 2018-12-20 16:31 | PROGRESS NOTE ---
DATE: 12/20/2018 SUBJECTIVE: The patient is resting comfortably. No acute events noted overnight. OBJECTIVE: Vital signs temperature 97.2 degrees, blood pressure 130/71, heart rate 70, respirations 18, O2 saturations 83% on 4 L nasal cannula. General this is a chronically ill- appearing elderly male lying in bed in no acute distress. Head normocephalic atraumatic. Heart S1, S2 normal. Lungs: Coarse breath sounds bilaterally. Abdomen: Positive bowel sounds. Soft, nontender, nondistended. Extremities: No edema no cyanosis. Neuro: The patient is lethargic. ASSESSMENT: 1. Acute on chronic hypoxemic and hypercapnic respiratory failure. 2. Aspiration pneumonia. 3. Possible endobronchial tumor. 4. Possible right facial skin cancer. 5. Acute pulmonary edema. 6. Severe chronic obstructive pulmonary disease. 7. Urinary retention. 8. Hypothyroidism. 9. Atrial fibrillation. PLAN: The patient's family have decided that they want antibiotics and a diet restarted on the patient. Will start zyvox, cefepime and duonebs. Will continue to monitor the patient closely. cc: Sonal Tiwari MD [facility]
[2018-12-20] MEDS: DUONEB (A & A) INH SCH ×2 (17:28→21:00)
[2018-12-20] MEDS: MAXIPIME 1 GM in NS 50 ML IV SCH (18:13)
[2018-12-20] MEDS: ZYVOX 600 MG/D5W 600 MG/300 ML IVPB IV SCH (18:13)
[2018-12-21] MEDS: MAXIPIME 1 GM in NS 50 ML IV SCH ×2 (06:04→16:51)
[2018-12-21] MEDS: ZYVOX 600 MG/D5W 600 MG/300 ML IVPB IV SCH ×2 (06:04→16:50)
[2018-12-21 07:43] LABS: HEMATOCRIT 48.2 % (42.0-52.0); HEMOGLOBIN 15.3 g/dL (14.0-18.0); MCH 28.9 PG (27-31); MCHC 31.7 g/dL (33-37); MCV 90.9 FL (81-99); MPV 11.5 FL (7.4-10.4); RBC 5.3 XMIL (4.7-6.1); RDW 14.2 % (11.5-14.5); WBC 8.35 X1000 (4.8-10.8)
[2018-12-21 08:14] LABS: ALB/GLOB RATIO 0.8; ALBUMIN 3.5 g/dL (3.5-5.0); CREATININE 1.3 mg/dL (0.7-1.2); POTASSIUM 3.8 mmol/L (3.5-5.1); TOTAL BILIRUBIN 0.43 mg/dL (0.20-1.00); TOTAL PROTEIN 7.8 g/dL (6.3-8.3)
[2018-12-21] MEDS ORDERED: LASIX IV SCH (09:00)
[2018-12-21] MEDS: MORPHINE IV PRN ×3 (10:16→23:18)
[2018-12-21] MEDS: DUONEB (A & A) INH SCH ×3 (11:05→21:10)
[2018-12-21] MEDS ORDERED: STERILE WATER INJ. INJ ONE (11:12)
[2018-12-21] MEDS ORDERED: STERILE WATER INJ. INJ PRN (11:20)
[2018-12-21] MEDS ORDERED: GEODON IM PRN (11:30)
[2018-12-21] MEDS ORDERED: ATIVAN IV PRN (12:11)
--- NOTE | 2018-12-21 12:38 | PROGRESS NOTE ---
DATE: 12/21/2018 SUBJECTIVE: The patient is awake and states that he is having pain. OBJECTIVE: Vital Signs: Temperature 97.3 degrees, blood pressure 141/68, heart rate 57, respirations 18, O2 saturation 86% on 4 L nasal cannula. General: This is a chronically ill- appearing elderly male, lying in bed, in no acute distress. Head: Normocephalic, atraumatic. Heart: S1, S2. Normal. Bradycardic. Lungs: Coarse breath sounds with crackles bilaterally. Abdomen: Positive bowel sounds. Soft, nontender, nondistended. Extremities: No edema no cyanosis. Neurologic: The patient is awake and able to answer questions but does fall asleep pretty quickly. ASSESSMENT: 1. Acute on chronic hypoxemic and hypercapnic respiratory failure. 2. Aspiration pneumonia. 3. Possible endobronchial tumor. 4. Possible right facial skin cancer. 5. Acute pulmonary edema. 6. Severe chronic obstructive pulmonary disease. 7. Urinary retention. 8. Atrial fibrillation. 9. Hypothyroidism. PLAN: Will continue with the current medications as ordered. There was no family available at the bedside this morning. cc: Sonal Tiwari MD
--- NOTE | 2018-12-21 14:12 | Diag Imaging Result Doc PS360 ---
EXAM: CHEST-1 VIEW HISTORY: pneumonia TECHNIQUE: Chest single view COMPARISON: 12/18/2018 FINDINGS: The lungs are well expanded. No cardiomegaly. There are bilateral infiltrates. These are less pronounced compared to the prior study. No pleural effusions identified. Old rib fractures. IMPRESSION: Interval improvement. Electronically signed by Javi Salomon 12/21/2018 2:10 PM
[2018-12-21] MEDS: ZOFRAN IV PRN (18:03)
[2018-12-21] MEDS: ATIVAN IV PRN (18:33)
[2018-12-22] MEDS: MORPHINE IV PRN ×5 (03:12→21:48)
[2018-12-22] MEDS: MAXIPIME 1 GM in NS 50 ML IV SCH ×2 (03:50→16:33)
[2018-12-22] MEDS: ZYVOX 600 MG/D5W 600 MG/300 ML IVPB IV SCH ×2 (04:34→17:16)
[2018-12-22] MEDS: DUONEB (A & A) INH SCH ×3 (10:11→21:05)
[2018-12-22] MEDS: ZOFRAN IV PRN ×2 (12:28→21:49)
[2018-12-22] MEDS: TRANSDERM-SCOP TD SCH (12:31)
--- NOTE | 2018-12-22 14:05 | PROGRESS NOTE ---
DATE: 12/22/2018 SUBJECTIVE: The patient is sitting up in bed and states that he is ready to eat his breakfast. OBJECTIVE: Vital Signs: Temperature 98.1 degrees, blood pressure 122/64, heart rate 63 respirations 18, and O2 saturations 92% on 4 L nasal cannula. General: This is a chronically ill- appearing elderly male sitting up in bed in no acute distress. Heart: S1, S2 normal. Regular rate and rhythm. Lungs: Coarse breath sounds bilaterally with crackles. Abdomen: Positive bowel sounds. Soft, nontender, nondistended. Extremities: No edema. No cyanosis. Neurologic: The patient is awake and alert. LABORATORY DATA: None. ASSESSMENT: 1. [id number] hypoxemic and hypercapnic respiratory failure. 2. Aspiration pneumonia. 3. Possible endobronchial tumor. 4. Possible right facial skin cancer. 5. Acute pulmonary edema. 6. Severe chronic obstructive pulmonary disease. 7. Urinary retention. 8. Atrial fibrillation. 9. Hypothyroidism. PLAN: Continue with antibiotic therapy. Will order a chest x-ray and labs to be done tomorrow. cc: Sonal Tiwari MD
[2018-12-23] MEDS: MORPHINE IV PRN ×7 (03:45→21:31)
--- NOTE | 2018-12-23 06:43 | Diag Imaging Result Doc PS360 ---
EXAM: CHEST-PORTABLE HISTORY: pneumonia TECHNIQUE: Portable chest single view COMPARISON: 12/21/2018 FINDINGS: The lungs are well expanded. No cardiomegaly. There are multiple old rib fractures. Mild increased interstitial markings throughout the lungs. These are slightly more prominent than on the prior study. No consolidation. No pleural effusions identified. IMPRESSION: Mild interval worsening. Electronically signed by Javi Salomon 12/23/2018 6:40 AM
[2018-12-23 07:55] LABS: HEMATOCRIT 47.4 % (42.0-52.0); HEMOGLOBIN 15.6 g/dL (14.0-18.0); MCH 29.4 PG (27-31); MCHC 32.9 g/dL (33-37); MCV 89.3 FL (81-99); MPV 11.9 FL (7.4-10.4); RBC 5.31 XMIL (4.7-6.1); WBC 8.23 X1000 (4.8-10.8)
[2018-12-23 08:19] LABS: CALCIUM 9.1 mg/dL (8.8-10.2); CREATININE 1.9 mg/dL (0.7-1.2); POTASSIUM 3.9 mmol/L (3.5-5.1)
[2018-12-23] MEDS: MAXIPIME 1 GM in NS 50 ML IV SCH ×2 (09:15→20:30)
[2018-12-23] MEDS: DUONEB (A & A) INH SCH ×3 (09:23→22:50)
[2018-12-23] MEDS: ZYVOX 600 MG/D5W 600 MG/300 ML IVPB IV SCH ×2 (10:05→20:30)
--- NOTE | 2018-12-23 11:32 | Diag Imaging Result Doc PS360 ---
CT ABD/PELVIS W/ORAL CONT ONLY - 12/23/2018 INDICATION: RLQ Abd. Pain and swelling, Poss. Hernia COMPARISON: 06/10/2013 FINDINGS: There is probably fluid or mucus impaction of airways of the lower lobes. There are some coarse infiltrates in the lung bases bilaterally. No pneumothorax or large pleural effusion. There is worsening in the significant right inguinal hernia which now extends into the right scrotum. This contains either distal small bowel or proximal colon. There is also worsening of a small bowel herniation in the left inguinal canal almost of the scrotum. There is no evidence of bowel obstruction. There is moderate diffuse constipation. No rectal stool impaction. There is a Gray catheter in the urinary bladder in good position. The urinary bladder is collapsed. The urinary bladder contains numerous radiodense ladder stones. The prostate gland is enlarged and suspicious, measuring about 6 x 7 cm. There is a left hip prosthesis. 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 IMPRESSION: Numerous issues. This exam was performed using automated exposure control, adjustment of mA or kV according to patient size, and/or use of iterative reconstruction technique Electronically signed by Mark Orosco 12/23/2018 11:30 AM
[2018-12-23] MEDS ORDERED: DULCOLAX PR ONE (12:47)
[2018-12-23] MEDS ORDERED: NS 500 ML IV ONE (13:13)
[2018-12-23 14:25] LABS: ALLEN TEST YES; BLOOD TYPE ARTERIAL; HCO3-(ACT) 30.2 mmoll (20.0-26.0); METHB 0.5 % (0.0-1.5); O2(CT) 20.1 mL/dL (15.0-23.0); O2HB 92.8 % (95.0-99.0); PCO2(98.6) 45 mmHg (35-45); PO2(98.6) 66 mmHg (60-100); SAMPLE BLOOD; SAO2 95.9 % (95.0-100.0); THB 15.4 g/dL (11.5-17.4); pH(98.6) 7.46 (7.35-7.45)
[2018-12-23 14:26] LABS: MODALITY VENTIMASK
[2018-12-23 18:31] LABS: URINE SOURCE CATH
[2018-12-23 18:35] LABS: BILIRUBIN URINE NEGATIVE (NEGATIVE); BLOOD URINE LARGE (NEGATIVE); COLOR YELLOW; GLUCOSE URINE NEGATIVE (NEGATIVE); KETONE URINE NEGATIVE (NEGATIVE); LEUKOCYTES URINE LARGE (NEGATIVE); NITRITE URINE NEGATIVE (NEGATIVE); PROTEIN URINE 200 mg/dL (NEGATIVE); SP GRAVITY URINE 1.016; TURBIDITY URINE HAZY (CLEAR); UR EPITHELIAL CELLS <10 /HPF (<10); URINE BACTERIA NEGATIVE /HPF; URINE RBC TNTC /HPF (<10); URINE WBC 20-40 /HPF (<10); UROBILINOGEN URINE NORMAL (NORMAL)
[2018-12-23 18:48] LABS: UR CREAT RANDOM 155.9 mg/dL (14-26); UR PROT RANDOM 175.4 mg/dL
[2018-12-23] MEDS: COLACE PO SCH (20:30)
--- NOTE | 2018-12-23 21:17 | PROGRESS NOTE ---
DATE: 12/23/2018 SUBJECTIVE: The patient is resting in bed. He complains of abdominal pain. OBJECTIVE: Vital Signs: Temperature 98, blood pressure 94/52, heart rate 61, respirations 18, and O2 saturation is 95% on 5 L nasal cannula. Intake 584, output 1 liters. General: This is a chronically ill appearing elderly male lying in bed in no acute distress. Heart: S1, S2 normal. Regular rate and rhythm. Lungs: Coarse breath sounds bilaterally with crackles. Abdomen: Hypoactive bowel sounds. Soft, diffuse tenderness. Extremities: No edema. No cyanosis. Neurologic: The patient is awake and alert. LABORATORY DATA: Hemoglobin 15, hematocrit 47, platelets 180. White blood cell count 8.2. Sodium 132, potassium 3.9, chloride 90, CO2 29, BUN 64, creatinine 1.9, glucose 105, calcium 9.1. IMAGING: Chest x-ray shows increased interstitial markings throughout the lungs. ASSESSMENT: 1. Acute on chronic hypoxemic and hypercapnic respiratory failure. 2. Aspiration pneumonia. Continue with antibiotic therapy. 3. Pulmonary edema. Aware. 4. Possible endobronchial tumor. Aware. 5. Possible right facial skin cancer. Aware. 6. Abdominal pain. Will order an abdominal CT with oral contrast. 7. Acute kidney injury on chronic kidney disease. Will check urine studies. 8. Severe chronic obstructive pulmonary disease. Continue with supportive care. 9. Urinary retention. Continue with Gray catheter. DISPOSITION: Medications were restarted at the request of the patient's next of kin. Will continue to monitor the patient closely. Palliative Care is following. cc: Sonal Tiwari MD
[2018-12-23] MEDS: MUCOMYST 20% INH SCH (22:50)
[2018-12-24 03:53] LABS: BLOOD TYPE ARTERIAL; SAMPLE BLOOD
[2018-12-24 03:54] LABS: ALLEN TEST YES; BE 4.9 mmoll (-3.0-3.0); HCO3-(ACT) 28.7 mmoll (20.0-26.0); METHB 1.2 % (0.0-1.5); MODALITY VENTIMASK; O2(CT) 20.2 mL/dL (15.0-23.0); O2HB 95.6 % (95.0-99.0); PCO2(98.6) 50 mmHg (35-45); PO2(98.6) 90 mmHg (60-100); SAO2 98.5 % (95.0-100.0)
[2018-12-24] MEDS: SYNTHROID PO SCH (06:40)
[2018-12-24 07:00] LABS: BASO# 0.02 X1000 (0.0-0.2); BASO% 0.3 % (0.0-0.8); EOS# 0.85 X1000 (0.0-0.7); EOS% 12.5 % (0.0-10.0); HEMATOCRIT 43.7 % (42.0-52.0); HEMOGLOBIN 14.9 g/dL (14.0-18.0); LYMPH# 0.79 X1000 (1.2-3.4); LYMPH% 11.6 % (20.5-51.1); MCH 30.2 PG (27-31); MCHC 34.1 g/dL (33-37); MCV 88.6 FL (81-99); MONO# 0.72 X1000 (0.11-0.59); MONO% 10.6 % (1.7-9.3); MPV 11.5 FL (7.4-10.4); NEUT# 4.43 X1000 (1.4-6.5); PLT 158 X1000 (130-400); RBC 4.93 XMIL (4.7-6.1); RDW 13.9 % (11.5-14.5); WBC 6.81 X1000 (4.8-10.8)
[2018-12-24 07:40] LABS: CALCIUM 8.4 mg/dL (8.8-10.2); CREATININE 1.4 mg/dL (0.7-1.2)
--- NOTE | 2018-12-24 09:40 | Diag Imaging Result Doc PS360 ---
EXAM: ABDOMEN FLAT/UPRIGHT INDICATION: constipation TECHNIQUE: 2 views COMPARISON: None. FINDINGS: There are nonspecific bowel gas patterns with small bowel and colonic gas. There is only mild distention. There is increased stool projecting of the lower pelvis. This is probably either in the rectum or within the loop of colon in the right inguinal hernia that was seen on a recent CT dated 12/23/2018. No large volume free abdominal gas is identified. There is extensive degenerative arthropathy throughout the spine and at the right hip. There has been a prior left hip arthroplasty. IMPRESSION: Nonspecific abdomen. Please see above discussion. Electronically signed by Tom Sousa 12/24/2018 9:38 AM
[2018-12-24] MEDS: MORPHINE IV PRN ×6 (09:57→21:44)
[2018-12-24] MEDS: MAXIPIME 1 GM in NS 50 ML IV SCH ×2 (09:57→21:43)
[2018-12-24] MEDS: COLACE PO SCH ×2 (09:58→21:43)
--- NOTE | 2018-12-24 10:13 | Diag Imaging Result Doc PS360 ---
EXAM: CHEST-PORTABLE INDICATION: aspiration pneumonia TECHNIQUE: One view COMPARISON: 12/23/2018 FINDINGS: Bilateral increased interstitial markings are similar to the previous study. In the right midlung zone, there is a bandlike opacity that has developed. It probably represents platelike atelectasis. No other new consolidation is appreciated. Cardiac silhouette is stable. IMPRESSION: Bandlike density in the right midlung zone that probably represents platelike atelectasis. Otherwise, interstitial thickening is stable. Electronically signed by Tom Sousa 12/24/2018 10:10 AM
[2018-12-24] MEDS: DUONEB (A & A) INH SCH ×3 (10:19→22:58)
[2018-12-24] MEDS: MUCOMYST 20% INH SCH ×2 (10:19→22:58)
[2018-12-24] MEDS: ZYVOX 600 MG/D5W 600 MG/300 ML IVPB IV SCH ×2 (10:42→21:43)
--- NOTE | 2018-12-24 14:00 | PROGRESS NOTE ---
DATE: 12/24/2018 SUBJECTIVE: Mr. Soares says he is not doing very good. He looks comfortable. He is breathing comfortably. OBJECTIVE: He remains afebrile. Temperature 98, pulse 70, and respirations 17. Pulse his stayed between 60 and 81 so I think his pulse appears normal. Blood pressure 172/64. Pupils are equal and round. Lungs are clear in all lung monroy. Cardiovascular exam regular rhythm and rate without murmur or S3. Abdomen is soft. Skin is warm and dry. DIAGNOSTIC: Chest x-ray: He has a band like density in the right mid lung zone probably represents platelet like atelectasis. Otherwise interstitial thickening is stable. ASSESSMENT AND PLAN: 1. Acute on chronic hypoxemic hypercapnic respiratory failure. 2. Aspiration pneumonia, which appears to be improving. Continue antibiotic therapy. 3. Pulmonary edema. 4. Possible endobronchial tumor. Aware. 5. Possible right facial skin cancer. Aware. 6. Abdominal pain. Abdominal CT with oral contrast was obtained on 12/23/2018. He has numerous issues. Exam was performed. He has possibly fluid or mucus impaction of airways of lower lobes. There are some coarse infiltrates of lung bases bilaterally. No pneumothorax or large bulla effusion. There is worsening significant right inguinal hernia that now extends to the right scrotum. This is contained to the distal small bowel proximal colon. It is worsening over the small bowel. Herniation in the left inguinal canal. There is no evidence of bowel obstruction. There is moderate diffuse constipation. No rectal stool impaction. There is a Gray catheter in the urinary bladder in good position. Left hip prosthesis appreciated. Prostate gland is enlarged and suspicious measuring 6 to 7 cm. There is severe vascular disease of the aorta. 7. Acute kidney injury on top of chronic kidney injury. 8. Severe chronic obstructive pulmonary disease. 9. Urinary retention. 10. We will continue to monitor patient closely. 11. Discuss with patient and family and [employer]er what the plan of care is. REVIEW OF ORDERS: Colace 100 mg b.i.d. p.o., Synthroid 25 mcg every day, and Linezolid 600 mg IV q.12. Urine culture no growth. Blood culture no growth from the 2nd. cc: MD CANDY Segundo
[2018-12-25 06:06] LABS: BLOOD TYPE ARTERIAL; SAMPLE BLOOD
[2018-12-25 06:07] LABS: ALLEN TEST YES; BE 6.1 mmoll (-3.0-3.0); HCO3-(ACT) 29.7 mmoll (20.0-26.0); METHB 1.2 % (0.0-1.5); O2(CT) 21.3 mL/dL (15.0-23.0); PCO2(98.6) 30 mmHg (35-45); PO2(98.6) 160 mmHg (60-100); SAO2 99.5 % (95.0-100.0); SRATE 10 BPM; THB 15.4 g/dL (11.5-17.4)
[2018-12-25 06:10] LABS: MODALITY BI PAP; pH(98.6) 7.57 (7.35-7.45)
[2018-12-25] MEDS: SYNTHROID PO SCH (06:30)
--- NOTE | 2018-12-25 06:48 | Diag Imaging Result Doc PS360 ---
CHEST-PORTABLE - 12/25/2018 INDICATION: aspiration pneumonia COMPARISON: 12/24/2018 FINDINGS: There are extensive, coarse infiltrates throughout the left lung base. There has been improvement in the multifocal linear atelectasis on the right side. Heart size remains top normal. No pneumothorax or significant pleural effusion. IMPRESSION: Shifting atelectasis. Extensive infiltrates in the left lung base. Electronically signed by Mark Orosco 12/25/2018 6:46 AM
[2018-12-25] MEDS: MAXIPIME 1 GM in NS 50 ML IV SCH ×2 (08:54→20:49)
[2018-12-25] MEDS: COLACE PO SCH ×3 (08:55→20:50)
[2018-12-25] MEDS: ZYVOX 600 MG/D5W 600 MG/300 ML IVPB IV SCH ×2 (08:55→20:49)
[2018-12-25] MEDS: TEARISOL OPH SOLUTION BOTH EYES SCH ×2 (08:56→20:49)
[2018-12-25] MEDS: MORPHINE IV PRN ×4 (09:32→18:16)
[2018-12-25] MEDS: MUCOMYST 20% INH SCH ×2 (09:35→21:34)
[2018-12-25] MEDS: DUONEB (A & A) INH SCH ×3 (09:35→21:34)
[2018-12-25 10:03] LABS: ALLEN TEST YES; BE 5.1 mmoll (-3.0-3.0); BLOOD TYPE ARTERIAL; HCO3-(ACT) 28.8 mmoll (20.0-26.0); METHB 1.1 % (0.0-1.5); MODALITY VENTIMASK; O2HB 94.4 % (95.0-99.0); PCO2(98.6) 46 mmHg (35-45); PO2(98.6) 74 mmHg (60-100); SAMPLE BLOOD; THB 15.8 g/dL (11.5-17.4); pH(98.6) 7.43 (7.35-7.45)
[2018-12-25] MEDS: ATROPINE 1 % OPHTH SOLN SL PRN (10:40)
[2018-12-25] MEDS: TRANSDERM-SCOP TD SCH ×2 (10:41→11:29)
[2018-12-25] MEDS: ATIVAN IV PRN (12:35)
[2018-12-25] MEDS: LASIX IV SCH (13:58)
[2018-12-25 17:25] LABS: ALLEN TEST YES; BE 7.6 mmoll (-3.0-3.0); BLOOD TYPE ARTERIAL; HCO3-(ACT) 30.7 mmoll (20.0-26.0); METHB 1.2 % (0.0-1.5); MODALITY VENTIMASK; O2(CT) 19.9 mL/dL (15.0-23.0); O2HB 91.3 % (95.0-99.0); PCO2(98.6) 46 mmHg (35-45); PO2(98.6) 60 mmHg (60-100); SAMPLE BLOOD; THB 15.5 g/dL (11.5-17.4); pH(98.6) 7.46 (7.35-7.45)
[2018-12-26] MEDS: MORPHINE IV PRN ×4 (02:31→15:24)
[2018-12-26 03:50] LABS: ALLEN TEST YES; BE 6.5 mmoll (-3.0-3.0); BLOOD TYPE ARTERIAL; HCO3-(ACT) 29.9 mmoll (20.0-26.0); METHB 1.6 % (0.0-1.5); MODALITY VENTIMASK; O2(CT) 20.9 mL/dL (15.0-23.0); O2HB 95.2 % (95.0-99.0); PCO2(98.6) 44 mmHg (35-45); PO2(98.6) 90 mmHg (60-100); SAMPLE BLOOD; SAO2 98.1 % (95.0-100.0); THB 15.6 g/dL (11.5-17.4); pH(98.6) 7.46 (7.35-7.45)
[2018-12-26] MEDS: SYNTHROID PO SCH (06:46)
[2018-12-26 06:59] LABS: BASO# 0.03 X1000 (0.0-0.2); BASO% 0.4 % (0.0-0.8); EOS# 0.57 X1000 (0.0-0.7); HEMATOCRIT 47.1 % (42.0-52.0); HEMOGLOBIN 15.6 g/dL (14.0-18.0); LYMPH# 0.88 X1000 (1.2-3.4); LYMPH% 12.4 % (20.5-51.1); MCH 29.2 PG (27-31); MCHC 33.1 g/dL (33-37); MCV 88.2 FL (81-99); MONO# 0.64 X1000 (0.11-0.59); MPV 11.2 FL (7.4-10.4); NEUT# 4.97 X1000 (1.4-6.5); NEUT% 70.2 % (42.2-75.2); PLT 182 X1000 (130-400); RBC 5.34 XMIL (4.7-6.1); RDW 13.6 % (11.5-14.5); WBC 7.09 X1000 (4.8-10.8)
[2018-12-26 07:19] LABS: CALCIUM 8.5 mg/dL (8.8-10.2); CREATININE 1.2 mg/dL (0.7-1.2); POTASSIUM 3.8 mmol/L (3.5-5.1)
--- NOTE | 2018-12-26 09:27 | PROGRESS NOTE ---
DATE: 12/26/2018 SUBJECTIVE: Mr. Soares says he does not feel as good today. What he means by that, he just feels pretty weak. He is still doing physical therapy. He says his bowels have not moved in a while. OBJECTIVE: Temperature 97.7 degrees, pulse 71, respirations 24, and blood pressure 136/53. Pupils are equal and round. Lungs are clear in all lung monroy anterolateral. Cardiovascular exam regular rhythm and rate without murmur or S3. No pedal edema. Urine output is 2400 mL. ASSESSMENT AND PLAN: 1. Acute on chronic hypoxemic hypercapnic respiratory failure, markedly improved. 2. Aspiration pneumonia, which appears to have resolved. 3. Pulmonary edema, improved. 4. Possible endobronchial tumor. Aware. 5. Possible right facial skin cancer. Aware. 6. Abdominal pain early on. Abdominal CT with contrast on 12/23 showed numerous issues, but did not find any surgical problem. He has a Gray catheter in. 7. Acute kidney injury which is resolved. 8. Severe chronic obstructive pulmonary disease. 9. Urinary retention. 10. Working on discharge plans. I think he is from [facility]. I do not know if we have reached maximum hospital benefit. VITAL SIGNS: Exam today, temperature 97.7 degrees, pulse 71, respirations 24 and blood pressure 136/58. REVIEW OF ORDERS: I do not see any change at this point. We will add some MiraLAX daily, and see if that helps his bowels and milk of magnesia. He is already on Colace. We will discuss with social service plans for discharge. cc: Sloan Ji MD
[2018-12-26] MEDS: MUCOMYST 20% INH SCH ×2 (10:04→20:02)
[2018-12-26] MEDS: DUONEB (A & A) INH SCH ×3 (10:04→20:02)
[2018-12-26] MEDS: ZYVOX 600 MG/D5W 600 MG/300 ML IVPB IV SCH ×2 (10:27→21:20)
[2018-12-26] MEDS: COLACE PO SCH ×2 (10:27→21:20)
[2018-12-26] MEDS: TEARISOL OPH SOLUTION BOTH EYES SCH ×3 (10:28→18:23)
[2018-12-26] MEDS: LASIX IV SCH (10:28)
[2018-12-26] MEDS: ZOFRAN IV PRN (10:32)
[2018-12-26] MEDS: MAXIPIME 1 GM in NS 50 ML IV SCH (13:03)
--- NOTE | 2018-12-26 13:13 | CONSULTATION ---
DATE OF CONSULTATION: 12/24/2018 REQUESTING PROVIDER: Dr. Sonal Tiwari REASON FOR CONSULTATION: Respiratory failure. HISTORY OF PRESENT ILLNESS: This is an 83-year-old male with a medical history of COPD, lung cancer, dementia, anxiety and depression, schizoaffective disorder with delusional features, paroxysmal atrial fibrillation, coronary artery disease, benign prostatic hyperplasia, prostate cancer, and hypothyroidism. He presented to the ER from [facility] with oxygen desaturation. Initial workup in the ER reviewed acute hypoxemic hypercapnic respiratory failure and pneumonia. 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 The patient has been seen by Dr. Taylor from 12/16/2018 to 12/18/2018 for Pulmonary evaluation and management. He had been on nonrebreather at a high-flow nasal cannula from 12/08/2018 to 12/20/2018. Apparently, from 12/20/2018 to 12/22/2018, he tolerates nasal cannula although with high oxygen flow rate at 4 or 5 L/minute. Yesterday afternoon, he was desaturated again and was put back on Venturi mask on nonrebreather. Currently, he is lying in bed with no acute distress noted. He is on Venturi mask with FiO2 50%. He is not actively answering my questions but closing his eyes most of the time. He shows me that he is having pain on his chest, which just comes and goes. PAST MEDICAL HISTORY: 1. COPD. 2. Lung cancer per H&P. 3. Dementia. 4. Anxiety and depression. 5. Schizoaffective disorder with delusional features. 6. History of paroxysmal atrial fibrillation. 7. Coronary artery disease with a history of ST elevated myocardial infarction in March 2018. 8. Benign prostatic hyperplasia with urinary retention. 9. History of prostate cancer. 10.Hypothyroidism. 11.Gait impairment, hearing impairment, and vision impairment. PAST SURGICAL HISTORY: Unknown. SOCIAL HISTORY: The patient has been living at [facility] for 3 years. He has never been and has no children. He has gait impairment and he is unable to ambulate. He has a 60+ pack year history of tobacco use and he quit 3 years ago while living at [facility]. He has no history of alcohol or illicit drug use. FAMILY HISTORY: Unknown. ALLERGIES: No known drug allergies. REVIEW OF SYSTEMS: Unable to be obtained. PHYSICAL EXAMINATION: Vital signs: Temperature 98.0, blood pressure 172/64, pulse 55, respiratory rate 18, oxygen saturation 97% on a Venturi mask with FiO2 50%. General: Chronically ill- appearing; resting in bed with no acute respiratory distress; complaining of pain on his chest and asking for pain medicine. HEENT: Atraumatic. Trachea midline. Mucosa pink and moist. Respiratory: Respiration even and unlabored. Symmetrical excursion. Auscultation revealed significant diminished breathing sounds bibasilarly with prolonged expiratory phase. Cardiovascular: Regular rate and rhythm. Gastrointestinal: Normoactive bowel sounds in all 4 quadrants, soft, tenderness on bilateral lower quadrant on palpation, flat. Extremities: No pedal edema. No cyanosis. No clubbing. Dorsalis pedis 2+ bilaterally. Neurologic: He is awake and alert but he is not answering questions actively. He does show weakness on bilateral upper and lower extremities. LAB DATA: White blood cells 6.81, hemoglobin 14.9, hematocrit 43.7, platelet 158. Sodium 134, potassium 4.0, chloride 94, carbon dioxide 28, BUN 54, creatinine 1.4, glucose 98. ABG: pH is 7.40, pCO2 50, pO2 90, HCO3 28.7, base excess 4.9, oxyhemoglobin 95.6. IMAGING DATA: Chest x-ray revealed bandlike density in the right middle lung zone that probably represents platelike atelectasis, otherwise stable interstitial thickening. ASSESSMENT: This is an 83-year-old male with a medical history of chronic obstructive pulmonary disease, lung cancer, dementia, anxiety and depression, schizoaffective disorder with delusional features, paroxysmal atrial fibrillation, coronary artery disease, benign prostatic hyperplasia, prostate cancer, and hypothyroidism. He has been admitted with acute hypoxemic hypercapnic respiratory and pneumonia since 12/08/2018. 1. Uqagt-on-kjrflzh hypoxemic respiratory failure. 2. Chronic hypercapnic respiratory failure. 3. Bibasilar coarse infiltrates likely secondary to recurrent aspiration pneumonia: on cefepime since 12/08/2018; Linezolid from 12/08/2018 to 12/13/2018 and from 12/20/2018 to present; and vancomycin from 12/16/2018 to 12/18/2018 4. 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 5. Possible endobronchial lesion in the left mainstem. 6. Severe chronic obstructive pulmonary disease. 7. Dementia. 8. Vcine-iu-gafkqcu renal failure. PLAN: 1. BiPAP at bedtime and as needed. 2. Continue antibiotics and bronchodilators; consider diuretic if indicated. 3. Follow up with a chest x-ray and ABG. 4. Patient is Do Not Resuscitate 1. 5. Further recommendations pending hospital course. Thanks for the courtesy of this consult. Dictated by CLAIRE Mar for Andrez Small MD cc: CLAIRE Mar MD [facility]
[2018-12-26] MEDS: ATIVAN IV PRN ×2 (13:36→18:23)
[2018-12-27] MEDS: MAXIPIME 1 GM in NS 50 ML IV SCH ×2 (03:00→17:09)
[2018-12-27 05:13] LABS: BLOOD TYPE ARTERIAL; PCO2(98.6) 49 mmHg (35-45); PO2(98.6) 73 mmHg (60-100); SAMPLE BLOOD; pH(98.6) 7.43 (7.35-7.45)
[2018-12-27 05:14] LABS: ALLEN TEST YES; BE 6.7 mmoll (-3.0-3.0); METHB 1.4 % (0.0-1.5); O2(CT) 20.8 mL/dL (15.0-23.0); O2HB 93.7 % (95.0-99.0); SAO2 96.8 % (95.0-100.0); THB 15.8 g/dL (11.5-17.4)
[2018-12-27 05:15] LABS: MODALITY VENTIMASK
--- NOTE | 2018-12-27 05:52 | Diag Imaging Result Doc PS360 ---
EXAM: CT THORAX W/O CONTRAST HISTORY: SOB TECHNIQUE: CT chest without contrast COMPARISON: 12/08/2018 FINDINGS: Motion degrades image quality. Trace pleural fluid and pericardial fluid. Severe atherosclerosis. No aortic aneurysm. Small calcified and noncalcified mediastinal nodes. Severe emphysema. Basilar atelectasis/pneumonia remains although it has improved compared to the prior study. Central vascular prominence. Bronchial wall thickening and mucous plugging is slightly less prominent than on the prior study. Old rib fractures. No pneumothoraces. IMPRESSION: Mild interval improvement. A preliminary report was given at 1:39 AM This exam was performed using automated exposure control, adjustment of mA or kV according to patient size, and/or use of iterative reconstruction technique. Electronically signed by Javi Salomon 12/27/2018 5:50 AM
[2018-12-27] MEDS: SYNTHROID PO SCH (06:32)
--- NOTE | 2018-12-27 06:38 | Diag Imaging Result Doc PS360 ---
CHEST-1 VIEW - 12/27/2018 INDICATION: SOB COMPARISON: 12/25/2018 FINDINGS: There is been some worsening in the right perihilar infiltrate. Grossly stable ill-defined interstitial infiltrate throughout the left lung. Heart size remains normal. No pneumothorax or large pleural effusion. IMPRESSION: Worsening right perihilar infiltrate. Electronically signed by Mark Orosco 12/27/2018 6:36 AM
[2018-12-27 07:21] LABS: BASO# 0.04 X1000 (0.0-0.2); BASO% 0.6 % (0.0-0.8); EOS# 0.73 X1000 (0.0-0.7); HEMATOCRIT 45.7 % (42.0-52.0); HEMOGLOBIN 15.3 g/dL (14.0-18.0); LYMPH# 0.99 X1000 (1.2-3.4); LYMPH% 14.9 % (20.5-51.1); MCH 29.9 PG (27-31); MCHC 33.5 g/dL (33-37); MCV 89.4 FL (81-99); MONO# 0.78 X1000 (0.11-0.59); MONO% 11.8 % (1.7-9.3); MPV 11.1 FL (7.4-10.4); NEUT# 4.09 X1000 (1.4-6.5); NEUT% 61.7 % (42.2-75.2); PLT 160 X1000 (130-400); RBC 5.11 XMIL (4.7-6.1); RDW 13.7 % (11.5-14.5); WBC 6.63 X1000 (4.8-10.8)
[2018-12-27 07:46] LABS: POTASSIUM 3.8 mmol/L (3.5-5.1)
[2018-12-27 07:47] LABS: CALCIUM 8.5 mg/dL (8.8-10.2); CREATININE 1.4 mg/dL (0.7-1.2)
[2018-12-27] MEDS: DUONEB (A & A) INH SCH ×3 (10:43→22:30)
[2018-12-27] MEDS: MUCOMYST 20% INH SCH ×2 (10:44→22:30)
[2018-12-27] MEDS: ZYVOX 600 MG/D5W 600 MG/300 ML IVPB IV SCH ×2 (11:01→20:18)
[2018-12-27] MEDS: LASIX IV SCH (11:02)
[2018-12-27] MEDS: TEARISOL OPH SOLUTION BOTH EYES SCH ×3 (11:02→17:10)
[2018-12-27] MEDS: COLACE PO SCH ×2 (11:03→20:18)
[2018-12-27] MEDS: ZOFRAN IV PRN (12:15)
--- NOTE | 2018-12-27 12:34 | PROGRESS NOTE ---
DATE: 12/27/2018 SUBJECTIVE: Mr. Soares stated that he was feeling about the same. Still on a face mask. He seems to be breathing comfortably. OBJECTIVE: He remains afebrile. Temperature 97.6 degrees, pulse 56, respirations 20, blood pressure 133/45. Pupils are equal and round. Lungs are clear in all lung monroy. Cardiovascular Examination: Regular rhythm and rate without murmur or S3. Abdomen is soft. Skin is warm and dry. Chest x-ray from this morning looks like worsening right perihilar infiltrate but basically unchanged. Chest x-ray from yesterday, mild interval improvement, severe atherosclerosis. No aortic aneurysm. Small calcified and noncalcified mediastinal nodes, severe emphysema, basilar atelectasis remained improved compared to prior study on 12/08/2018. ASSESSMENT AND PLAN: 1. Try to get his FiO2 down. He has aspiration pneumonia and mucus plugging bilateral lower lobes and atelectasis. His acute respiratory failure is improved. Not able to get his FiO2 down to 3 L. He has underlying chronic obstructive pulmonary disease which is severe. 2. Congestive heart failure. This appears to be better compensated. Still some pulmonary venous hypertension, pleural effusion, but I do not know that is going to be able to be improved much more. 3. 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 4. Nutrition. He is eating a little better. 5. General weakness, deconditioning. We cannot send him back to the [facility], which I think is [facility], until we can get his FiO2 down. I do not know if we need to consider long-term acute care or consider other options. We will discuss with the team. REVIEW OF ORDERS: He is getting Lasix 40 mg IV daily, Colace 100 mg b.i.d., Synthroid 25 mcg daily, cefepime 1 g IV q.12 hours. He is on a scopolamine patch 1.5 mg every 72 hours and linezolid 600 mg IV q.12. MOST RECENT LABORATORY DATA: White count 6630, hematocrit is 45, platelet count is 160,000. Sodium 133, potassium 3.8, chloride 92, BUN 35, creatinine 1.4 which has been stable, calcium 8.5. ProBNP was 1069 which has come down from 11,000 back on 12/23/2018. cc: Sloan Ji MD
[2018-12-27] MEDS: MORPHINE IV PRN ×2 (15:31→17:09)
[2018-12-27] MEDS: ATIVAN IV PRN (17:09)
[2018-12-28 04:59] LABS: ALLEN TEST YES; BE 8.7 mmoll (-3.0-3.0); BLOOD TYPE ARTERIAL; HCO3-(ACT) 31.7 mmoll (20.0-26.0); METHB 0.9 % (0.0-1.5); O2(CT) 20.1 mL/dL (15.0-23.0); O2HB 95.8 % (95.0-99.0); PO2(98.6) 86 mmHg (60-100); SAMPLE BLOOD; SAO2 98.2 % (95.0-100.0); THB 14.9 g/dL (11.5-17.4); pH(98.6) 7.44 (7.35-7.45)
[2018-12-28 05:03] LABS: MODALITY VENTIMASK; PCO2(98.6) 51 mmHg (35-45)
--- NOTE | 2018-12-28 05:40 | PULMONOLOGY PROGRESS NOTE ---
DATE: 12/27/2018 SUBJECTIVE: The patient is just lying in his bed. He is awake and alert. He reports he is "doing okay." OBJECTIVE: Vital signs: The patient has been afebrile for the last 24 hours. Blood pressure 112/60, heart rate 58, oxygen saturation 93% on Venturi mask. HEENT: Pupils are equal and reactive. Oropharynx appears clear. Neck: Supple. Chest: Reveals rhonchi bilaterally. Cardiac: S1, S2. Abdomen: Soft. Extremities: Without edema. LABORATORIES: CT scan of the thorax is reviewed. The patient has evidence of tracheobronchomalacia. No evidence of obstruction in the left mainstem. He has bronchial wall thickening, but mucus impaction appears to have diminished compared to 12/08/2018. IMPRESSION: An 83-year-old with 1. Severe chronic obstructive pulmonary disease. 2. Acute on chronic hypoxemic respiratory failure. 3. Bibasilar pneumonia with evidence of improvement. 4. Tracheobronchomalacia. 5. Dementia. 6. No evidence of endobronchial lesion identified on 2nd CT scan. RECOMMENDATIONS: 1. Continue bronchial hygiene. 2. Complete 2 week course of current antibiotic regimen. 3. Wean oxygen as tolerated. 4. Agree with evaluation for long-term acute care, if this could be facilitated. cc: Alberto Taylor MD
[2018-12-28] MEDS: ZYVOX 600 MG/D5W 600 MG/300 ML IVPB IV SCH ×2 (05:53→17:41)
[2018-12-28] MEDS: MAXIPIME 1 GM in NS 50 ML IV SCH ×2 (05:53→17:41)
[2018-12-28] MEDS: ZOFRAN IV PRN (05:53)
[2018-12-28] MEDS: SYNTHROID PO SCH (05:57)
[2018-12-28 07:01] LABS: BASO# 0.03 X1000 (0.0-0.2); BASO% 0.6 % (0.0-0.8); EOS# 0.78 X1000 (0.0-0.7); EOS% 14.4 % (0.0-10.0); HEMATOCRIT 43.3 % (42.0-52.0); HEMOGLOBIN 14.7 g/dL (14.0-18.0); LYMPH# 0.87 X1000 (1.2-3.4); LYMPH% 16.1 % (20.5-51.1); MCH 29.9 PG (27-31); MCHC 33.9 g/dL (33-37); MCV 88.2 FL (81-99); MONO# 0.57 X1000 (0.11-0.59); MONO% 10.5 % (1.7-9.3); MPV 10.9 FL (7.4-10.4); NEUT# 3.16 X1000 (1.4-6.5); NEUT% 58.4 % (42.2-75.2); PLT 154 X1000 (130-400); RBC 4.91 XMIL (4.7-6.1); RDW 13.5 % (11.5-14.5); WBC 5.41 X1000 (4.8-10.8)
[2018-12-28 07:15] LABS: CALCIUM 8.3 mg/dL (8.8-10.2); CREATININE 1.2 mg/dL (0.7-1.2); POTASSIUM 3.8 mmol/L (3.5-5.1)
[2018-12-28] MEDS: MORPHINE IV PRN ×6 (09:09→22:04)
[2018-12-28] MEDS: COLACE PO SCH ×2 (09:09→21:06)
[2018-12-28] MEDS: LASIX IV SCH (09:09)
[2018-12-28] MEDS: TEARISOL OPH SOLUTION BOTH EYES SCH ×3 (09:10→17:48)
[2018-12-28] MEDS: DUONEB (A & A) INH SCH ×3 (09:52→20:15)
[2018-12-28] MEDS: MUCOMYST 20% INH SCH ×2 (09:52→20:15)
--- NOTE | 2018-12-28 11:22 | PROGRESS NOTE ---
DATE: 12/28/2018 SUBJECTIVE: Mr. Soares looks like he is breathing comfortably, feeling better. He is asking about when he gets to go home. He remains afebrile. OBJECTIVE: Vital signs: Temperature 97.6 degrees, pulse 48, respirations 14, blood pressure 124/73. Pupils are equal round. Lungs are clear in all lung monroy. Cardiovascular: Regular rhythm and rate without murmur or S3. Abdomen is soft. Skin is warm and dry. ASSESSMENT AND PLAN: Severe chronic obstructive pulmonary disease, acute on chronic hypoxemic respiratory failure, bibasilar pneumonia with evidence of improvement in atelectasis. He has a history of tracheobronchomalacia, underlying dementia. No evidence of endobronchial lesion identified on the 2nd CT scan. So, continue bronchial hygiene and antibiotics and continue to try and wean down his oxygen. If we get him down to 3 L, he could go to one of the local facilities. He may need long-term acute care if this could be facilitated, so we will look into LTAC. Continue current regimen. Continue physical and occupational therapy. This patient is still on linezolid 600 mg IV q.12 and cefepime 1 g q.12. CBC and electrolytes look good. cc: Sloan Ji MD
[2018-12-28] MEDS: TRANSDERM-SCOP TD SCH (12:33)
--- NOTE | 2018-12-28 18:39 | PULMONOLOGY PROGRESS NOTE ---
DATE: 12/28/2018 SUBJECTIVE: The patient is awake, alert and conversant. He is currently receiving a Mucomyst treatment. He is without specific complaints. OBJECTIVE: The patient has been afebrile for the last 24 hours. Blood pressure 122/75, heart rate 55, respiratory rate 20, oxygen saturation 95% on venturi mask (40%). HEENT: Pupils are equal and reactive. Oropharynx is clear. Neck is supple. Chest reveals scattered rhonchi bilaterally. Cardiac exam: S1, S2. Abdomen is soft and without hepatosplenomegaly. Extremities without edema. LABORATORY DATA: Sodium 132, potassium 3.8, chloride 91, bicarbonate 30, BUN 34, creatinine 1.2. White blood count 5.4, hemoglobin 14.7, platelet count 154,000. Arterial blood gas reveals a pH of 7.44, pCO2 of 51, pO2 of 86. IMPRESSION: An 83-year-old with: 1. Severe chronic obstructive pulmonary disease. 2. Bssom-wt-qwmelwz hypoxemic respiratory failure. 3. Bibasilar pneumonia, with radiographic improvement. 4. Tracheobronchial malacia. 5. Dementia. RECOMMENDATIONS: 1. Continue current antibiotics for 2 weeks. 2. Continue bronchial hygiene. 3. Wean oxygen as tolerated. 4. Agree with long-term acute care if this can be facilitated. cc: Alberto Taylor MD
[2018-12-28] MEDS ORDERED: DULCOLAX PR ONE (20:02)
[2018-12-28] MEDS: MIRALAX PO SCH (21:06)
[2018-12-28] MEDS: MILK OF MAGNESIA PO PRN (22:04)
[2018-12-29] MEDS: ATIVAN IV PRN ×4 (00:55→23:42)
[2018-12-29] MEDS: MORPHINE IV PRN ×7 (03:29→23:42)
[2018-12-29] MEDS: ZYVOX 600 MG/D5W 600 MG/300 ML IVPB IV SCH ×2 (06:18→18:38)
[2018-12-29] MEDS: SYNTHROID PO SCH (06:18)
[2018-12-29] MEDS: MAXIPIME 1 GM in NS 50 ML IV SCH ×2 (06:18→18:38)
[2018-12-29 06:46] LABS: BASO# 0.02 X1000 (0.0-0.2); BASO% 0.3 % (0.0-0.8); LYMPH# 0.82 X1000 (1.2-3.4); LYMPH% 12.3 % (20.5-51.1); MCH 29.5 PG (27-31); MCHC 33.3 g/dL (33-37); MCV 88.6 FL (81-99); MONO# 0.71 X1000 (0.11-0.59); MONO% 10.7 % (1.7-9.3); MPV 10.5 FL (7.4-10.4); NEUT% 64.7 % (42.2-75.2); PLT 143 X1000 (130-400); RBC 5.08 XMIL (4.7-6.1); RDW 13.5 % (11.5-14.5); WBC 6.65 X1000 (4.8-10.8)
[2018-12-29 07:22] LABS: CALCIUM 8.6 mg/dL (8.8-10.2); CREATININE 1.2 mg/dL (0.7-1.2); POTASSIUM 4.2 mmol/L (3.5-5.1)
[2018-12-29] MEDS: MUCOMYST 20% INH SCH ×2 (08:14→19:47)
[2018-12-29] MEDS: MIRALAX PO SCH (08:48)
[2018-12-29] MEDS: ZOFRAN IV PRN ×3 (08:49→18:39)
[2018-12-29] MEDS: COLACE PO SCH ×2 (08:49→20:23)
[2018-12-29] MEDS: TEARISOL OPH SOLUTION BOTH EYES SCH ×3 (08:49→18:38)
[2018-12-29] MEDS: LASIX IV SCH (08:49)
[2018-12-29] MEDS: DUONEB (A & A) INH SCH ×3 (11:09→19:47)
--- NOTE | 2018-12-29 13:47 | PROGRESS NOTE ---
DATE: 12/29/2018 Mr. Soares is feeling better. His oxygen was off when I came seen in the room. He is breathing comfortably remains afebrile, temperature 98.3 degrees, pulse 48, respirations 20, blood pressure 129/64. Pupils are equal and round. Lungs are clear in all lung monroy. Cardiovascular regular rhythm, rate without murmur or S3. Urine output was a little over a liter. ASSESSMENT AND PLAN: 1. Severe chronic obstructive pulmonary disease. 2. Acute on chronic hypoxemic respiratory failure. 3. Bibasilar pneumonia. Radiographic improvement, clinically improved. 4. Tracheobronchial malacia. 5. Dementia. We are trying to get his FiO2 down to 3 L nasal cannula. He does seem to be a little stronger. Continue physical therapy. CT of his chest on 12/26 showed mild improvement so will repeat a chest x-ray again in the morning. Maybe check some ABGs in the morning see where we are. His CBC this morning, white count 6650, hematocrit 45, platelet count is 143,000. Sodium 135, potassium 4.2, chloride 93, BUN 30, creatinine 1.2. These are stable. cc: Sloan Ji MD
--- NOTE | 2018-12-29 15:06 | PULMONOLOGY PROGRESS NOTE ---
DATE: 12/29/2018 SUBJECTIVE: Patient is awake and alert. He does follow commands. He has a cough with a slight rattle. OBJECTIVE: Vital Signs: The patient is afebrile. Blood pressure 129/64, heart rate 48, respiratory rate 16, oxygen saturation 95% on 40% Venturi mask. HEENT: Pupils are equal and reactive. Oropharynx is clear. Neck: Supple. Chest: Reveals occasional rhonchi bilaterally. Cardiac exam: S1, S2. Abdomen: Soft. Extremities: Without edema. LABORATORIES: White blood count 6.65, hemoglobin 15.0, platelet count 143,000. Sodium 135, potassium 4.2, chloride 93, bicarbonate 33, BUN 30, creatinine 1.2. IMPRESSION: An 83-year-old with: 1. Severe chronic obstructive pulmonary disease. 2. Acute on chronic hypoxemic respiratory failure. 3. Pneumonia with improvement. 4. Tracheobronchomalacia. 5. Dementia. DISCUSSION: An 83-year-old with problems outlined above. He has had some radiographic and clinical improvement. He currently is on 40% oxygen therapy. RECOMMENDATIONS: 1. Continue antibiotics for a 2-week course. 2. Continue bronchial hygiene. 3. Wean oxygen as tolerated. 4. An LTAC would be of benefit, but he may be ready for discharge this week. cc: Alberto Taylor MD
[2018-12-29] MEDS: MILK OF MAGNESIA PO PRN (23:42)
[2018-12-30] MEDS: MAXIPIME 1 GM in NS 50 ML IV SCH ×2 (06:36→17:50)
[2018-12-30] MEDS: ZYVOX 600 MG/D5W 600 MG/300 ML IVPB IV SCH ×2 (06:36→17:50)
[2018-12-30] MEDS: SYNTHROID PO SCH (06:37)
[2018-12-30 07:01] LABS: BASO# 0.02 X1000 (0.0-0.2); BASO% 0.3 % (0.0-0.8); EOS# 0.86 X1000 (0.0-0.7); EOS% 11.1 % (0.0-10.0); HEMATOCRIT 47.3 % (42.0-52.0); HEMOGLOBIN 15.5 g/dL (14.0-18.0); LYMPH# 0.74 X1000 (1.2-3.4); LYMPH% 9.6 % (20.5-51.1); MCH 29.4 PG (27-31); MCHC 32.8 g/dL (33-37); MCV 89.8 FL (81-99); MONO# 0.61 X1000 (0.11-0.59); MONO% 7.9 % (1.7-9.3); MPV 10.7 FL (7.4-10.4); NEUT% 71.1 % (42.2-75.2); PLT 135 X1000 (130-400); RBC 5.27 XMIL (4.7-6.1); RDW 13.6 % (11.5-14.5); WBC 7.73 X1000 (4.8-10.8)
[2018-12-30 07:16] LABS: CALCIUM 8.7 mg/dL (8.8-10.2); CREATININE 1.2 mg/dL (0.7-1.2); POTASSIUM 4.3 mmol/L (3.5-5.1)
[2018-12-30] MEDS: ZOFRAN IV PRN ×4 (07:35→20:54)
[2018-12-30] MEDS: LASIX IV SCH (08:52)
[2018-12-30] MEDS: COLACE PO SCH ×2 (08:52→20:54)
[2018-12-30] MEDS: MIRALAX PO SCH (08:52)
[2018-12-30] MEDS: MORPHINE IV PRN ×4 (08:52→23:55)
[2018-12-30] MEDS: TEARISOL OPH SOLUTION BOTH EYES SCH ×3 (08:53→17:50)
[2018-12-30] MEDS: MUCOMYST 20% INH SCH ×2 (11:38→21:30)
[2018-12-30] MEDS: DUONEB (A & A) INH SCH ×3 (11:38→21:30)
[2018-12-30] MEDS: ATIVAN IV PRN ×2 (16:05→23:55)
--- NOTE | 2018-12-30 16:37 | PROGRESS NOTE ---
DATE: 12/30/2018 SUBJECTIVE: Mr. Soares has had nausea. He said most of the day, he had an emesis basin that was dry next to his bed. He did get down a little food by his report today. OBJECTIVE: Vital Signs: He remains afebrile, temperature 98.4 degrees, pulse 60, respirations 20, blood pressure 137/78. HEENT: Pupils are equal and round. Lungs: Clear anterolateral. Cardiovascular: Regular rhythm and rate without murmur or S3. Abdomen: Soft. Skin: Warm and dry. Urine output is 1000 mL. ASSESSMENT AND PLAN: Severe chronic obstructive pulmonary disease, acute on chronic hypoxemic respiratory failure, pneumonia with improvement. He has tracheal bronchomalacia. He is currently at 40% oxygen therapy. He has some radiographic clinical improvement. If we can get him down to 3 L nasal cannula, he could go back to [facility], so continue his antibiotics and bronchial hygiene. Wean oxygen as we can. He did not have interest in going to LTAC, but feel like it would be a benefit and could encourage him still to pursue LTAC. We need to continue to get his FiO2 down before he can go to [facility]. Looking at his medications, I do not know if the nausea is from constipation. He is getting MiraLAX now 1 a day. I may go up to twice a day on that and add some Colace to that p.o. We will get a portable abdominal KUB to see if there is a lot of stool in the colon. LABORATORY DATA: His CBC today, white count 7730, hematocrit is 47, platelet count a 135,000. Sodium 136, potassium 4.3, chloride 90, BUN 27, creatinine 1.2, so those appear stable. cc: Sloan Ji MD
--- NOTE | 2018-12-30 16:39 | Diag Imaging Result Doc PS360 ---
KUB ABDOMEN - 12/30/2018 INDICATION: constipation? COMPARISON: 12/24/2018 FINDINGS: There has been resolution of the rectal stool impaction. No bowel obstruction or free air. IMPRESSION: Resolution of the constipation. No bowel obstruction or free air. Electronically signed by Mark Orosco 12/30/2018 4:37 PM
--- NOTE | 2018-12-30 21:16 | PULMONOLOGY PROGRESS NOTE ---
DATE: 12/30/2018 SUBJECTIVE: The patient is awake and alert. He reports he does not feel as well. OBJECTIVE: Oxygen saturation 98% on nasal cannula. BP 130/78, heart rate 57, respiratory rate 20. The patient has been afebrile for the last 24 hours.HEENT: Pupils are equal and reactive. Oral appears clear. Neck: Is supple. Chest: Reveals some rhonchi bilaterally. Cardiac exam: S1-S2. Abdomen: Is soft with mild increased tympany. Extremities: Without edema. LABORATORIES: White blood count 7.73, hemoglobin 15.5, platelet count 135,000. Sodium 136, potassium 4.3, chloride 90, bicarbonate 35, BUN 27, creatinine 1.2. IMPRESSION: An 83-year-old with: 1. Severe chronic obstructive pulmonary disease. 2. Acute on chronic hypoxic respiratory failure. 3. Pneumonia with radiographic improvement. 4. Tracheobronchomalacia. 5. Dementia. DISCUSSION: An 83-year-old with problems outlined above. His oxygen requirements are decreasing and he has been transition from a Venturi mask to a nasal cannula. RECOMMENDATION: 1. Complete 2 week course of antibiotics. 2. Continue bronchial hygiene. 3. Wean oxygen as tolerated. 4. Anticipate discharged to long-term assisted care or rehab if possible. cc: Alberto Taylor MD
[2018-12-31] MEDS: MAXIPIME 1 GM in NS 50 ML IV SCH ×2 (05:04→17:26)
[2018-12-31] MEDS: ZYVOX 600 MG/D5W 600 MG/300 ML IVPB IV SCH ×2 (05:13→17:15)
[2018-12-31] MEDS: MORPHINE IV PRN ×5 (05:22→21:50)
[2018-12-31] MEDS: ZOFRAN IV PRN ×2 (05:22→10:13)
[2018-12-31] MEDS: SYNTHROID PO SCH (06:28)
[2018-12-31 07:37] LABS: BASO# 0.03 X1000 (0.0-0.2); BASO% 0.4 % (0.0-0.8); EOS# 0.53 X1000 (0.0-0.7); HEMATOCRIT 44.5 % (42.0-52.0); HEMOGLOBIN 14.4 g/dL (14.0-18.0); LYMPH# 0.72 X1000 (1.2-3.4); LYMPH% 9.5 % (20.5-51.1); MCH 29.1 PG (27-31); MCHC 32.4 g/dL (33-37); MCV 89.9 FL (81-99); MONO# 0.49 X1000 (0.11-0.59); MONO% 6.4 % (1.7-9.3); MPV 10.9 FL (7.4-10.4); NEUT# 5.83 X1000 (1.4-6.5); NEUT% 76.7 % (42.2-75.2); PLT 110 X1000 (130-400); RBC 4.95 XMIL (4.7-6.1); RDW 13.5 % (11.5-14.5)
[2018-12-31 07:49] LABS: ESTIMATED GFR > 60
[2018-12-31 08:01] LABS: AGAP 7; BUN 28 mg/dL (8-22); CALCIUM 8.6 mg/dL (8.8-10.2); CHLORIDE 89 mmol/L (98-107); COSMO 270; CREATININE 1.1 mg/dL (0.7-1.2); GLUCOSE 125 mg/dL (70-104); POTASSIUM 4.3 mmol/L (3.5-5.1); SODIUM 131 mmol/L (136-145); TCO2 35 mmol/L (25-35)
[2018-12-31] MEDS: MIRALAX PO SCH (08:24)
[2018-12-31] MEDS: COLACE PO SCH ×2 (08:25→21:49)
[2018-12-31] MEDS: TEARISOL OPH SOLUTION BOTH EYES SCH ×3 (08:29→17:19)
[2018-12-31] MEDS: LASIX IV SCH (08:29)
[2018-12-31] MEDS: ATIVAN IV PRN ×2 (10:11→18:12)
[2018-12-31] MEDS: DUONEB (A & A) INH SCH ×3 (11:19→22:04)
[2018-12-31] MEDS: MUCOMYST 20% INH SCH ×2 (11:20→22:04)
[2018-12-31] MEDS: TRANSDERM-SCOP TD SCH (12:01)
--- NOTE | 2018-12-31 16:34 | PROGRESS NOTE ---
DATE: 12/31/2018 SUBJECTIVE: This patient is sleepy, but arousable. He is following commands and answering some of my questions. No family members at the bedside. He does not feel well. He was vomiting in the morning and also during the night. At this moment he is tolerating a little bit of food, but not that much. Also he is not doing too much physical therapy. As per the patient he is on home O2. OBJECTIVE: Vital Signs: Temperature 98.6 degrees, pulse 82, respiratory rate 16, blood pressure 128/48, oxygen saturation 94% on 5 L of nasal cannula. HEENT: Head normocephalic, no trauma. PERRLA. Neck: Supple. No JVD. No masses. Central trachea. Chest: Some rhonchi and crepitus bilaterally mostly at the bases. Abdomen: Soft, nontender, nondistended. No hepatosplenomegaly. Extremities: No edema, no clubbing, no cyanosis. Neurological: This patient is sleepy but arousable. He is answering some of my questions and following commands. LABORATORY: WBC 7.6, hemoglobin 14.4, hematocrit 44.5, platelets 110,000. Sodium 131, potassium 4.3, chloride 89, bicarbonate 35, BUN 28, creatinine 1.1, glucose 125, calcium 8.6. ASSESSMENT AND PLAN: 1. Severe chronic obstructive pulmonary disease. Continue with the same management, oxygen supplementation, breathing treatment, antibiotics. 2. Acute on chronic hypoxemic respiratory failure. He is tolerating nasal cannula today, 5 to 6 L. We will continue with same management. 3. Pneumonia with some improvement on the x-ray. Aware. Continue with antibiotics. We will complete 14 days of treatment. 4. Tracheobronchomalacia. Aware. Continue with same management. 5. Dementia. Probably it is not that severe. He is answering some of my questions and following commands. We will monitor. Overall, this patient is doing a little bit better. He has been complaining of shortness of breath, nausea/vomiting in the morning and also yesterday night. We will continue with the same management for now. He seems to be weak and frail. The Palliative Care team on board. We will continue with the same treatment. cc: Jeff Aguilera MD
--- NOTE | 2018-12-31 21:52 | PULMONOLOGY PROGRESS NOTE ---
DATE: 12/31/2018 SUBJECTIVE: The patient is arousable to alert. He follows commands. He is having some difficulty with p.o. intake, but denies shortness of breath. OBJECTIVE: The patient has been afebrile for the last 24 hours. Blood pressure 128/48, heart rate 72, respiratory rate 16, oxygen saturation 94% on 5 L per nasal cannula. HEENT: Pupils are equal and reactive. Oropharynx is clear. Neck is supple. Chest reveals scattered rhonchi bilaterally. Cardiac exam: S1, S2. Abdomen is soft. Extremities without edema. LABORATORY DATA: White blood count 7.6, hemoglobin 14.4, platelet count 110,000. Sodium 131, potassium 4.3, chloride 89, bicarbonate 35, BUN 28, creatinine 1.1. IMPRESSION: An 83-year-old with: 1. Severe chronic obstructive pulmonary disease. 2. Mitmn-ig-gwisale hypoxemic respiratory failure. 3. Dementia. 4. Tracheobronchomalacia. 5. Pneumonia. DISCUSSION: An 83-year-old with problems outlined above. He is having some improvement and has transitioned to a nasal cannula. He is at risk for aspiration, and may have decompensation if he has an aspiration event. His overall prognosis is poor, and end-of-life discussions have been held. He will be allowed to have a natural if he dies during this hospitalization. RECOMMENDATIONS: 1. Complete 2-week course of antibiotics. 2. Continue bronchial hygiene. 3. Anticipate discharge soon. cc: Alberto Taylor MD
[2019-01-01] MEDS: MAXIPIME 1 GM in NS 50 ML IV SCH ×2 (04:59→17:01)
[2019-01-01] MEDS: ZYVOX 600 MG/D5W 600 MG/300 ML IVPB IV SCH ×2 (05:01→17:01)
[2019-01-01] MEDS: SYNTHROID PO SCH (06:33)
[2019-01-01] MEDS: DUONEB (A & A) INH SCH ×2 (09:48→15:56)
[2019-01-01] MEDS: MUCOMYST 20% INH SCH (09:49)
[2019-01-01] MEDS: MIRALAX PO SCH (11:07)
[2019-01-01] MEDS: LASIX IV SCH (11:07)
[2019-01-01] MEDS: COLACE PO SCH ×2 (11:07→20:21)
[2019-01-01] MEDS: TEARISOL OPH SOLUTION BOTH EYES SCH ×3 (11:09→17:02)
[2019-01-01] MEDS: ZOFRAN IV PRN ×2 (11:16→20:21)
--- NOTE | 2019-01-01 11:19 | PROGRESS NOTE ---
DATE: 01/01/2019 SUBJECTIVE: This patient is sleepy but arousable. He is following commands. He is answering some of my questions. He is oriented x2. No family members at the bedside. He is really weak. He is tolerating a little bit of food today. OBJECTIVE: Vital Signs: Temperature 99.3 degrees, pulse 59, respiratory rate 18, blood pressure 155/85, oxygen saturation 96 on 6 L of nasal cannula. HEENT: Head normocephalic. No trauma. PERRLA. Neck: Supple. No JVD. No masses. Central trachea. Chest: Some rhonchi and crepitus bilaterally, mostly at the bases. Abdomen: Soft, nontender, nondistended. No hepatosplenomegaly. Extremities: No edema, no clubbing, no cyanosis. Neurological: This patient is sleepy but arousable, oriented x2. He is answering to some of my questions and following commands. LABORATORY DATA: No lab work done today. ASSESSMENT AND PLAN: 1. Severe chronic obstructive pulmonary disease. Continue with same management, oxygen supplementation, breathing treatment, antibiotics to complete 14 days. Pulmonary Department on board. 2. Acute on chronic hypoxemic respiratory failure. He is tolerating nasal cannula, 6 L. We will continue with same management. 3. Pneumonia with some improvement on the x-ray. Aware. Continue with antibiotics. He is still coughing up some phlegm, but it is whitish, is not yellowish. 4. Tracheobronchomalacia. Aware. Continue with same management. 5. Dementia. Probably this is not that severe. He is answering of to some of my questions and following commands. We will monitor. Overall, this patient is breathing better but he is still complaining of shortness of breath, yesterday he was having some nausea and vomiting. We will continue with the same management for now. He is really weak. Palliative Care on board. We will continue to monitor. We will try to meet with the family to talk about his further plan. cc: Jeff Aguilera MD
[2019-01-01] MEDS: MORPHINE IV PRN ×2 (15:34→20:30)
[2019-01-02] MEDS: ATIVAN IV PRN ×4 (00:44→19:55)
[2019-01-02] MEDS: DUONEB (A & A) INH SCH ×4 (02:00→22:45)
[2019-01-02] MEDS: MUCOMYST 20% INH SCH ×3 (02:00→22:45)
[2019-01-02] MEDS: ZYVOX 600 MG/D5W 600 MG/300 ML IVPB IV SCH ×2 (04:53→16:50)
[2019-01-02] MEDS: MAXIPIME 1 GM in NS 50 ML IV SCH ×2 (04:53→16:50)
[2019-01-02] MEDS: SYNTHROID PO SCH (06:11)
[2019-01-02] MEDS: TEARISOL OPH SOLUTION BOTH EYES SCH ×3 (08:34→16:51)
[2019-01-02] MEDS: LASIX IV SCH (08:34)
[2019-01-02] MEDS: COLACE PO SCH ×2 (08:34→19:55)
[2019-01-02] MEDS: MIRALAX PO SCH (08:34)
[2019-01-02] MEDS: ZOFRAN IV PRN ×2 (08:34→12:11)
--- NOTE | 2019-01-02 14:03 | PROGRESS NOTE ---
DATE: 01/02/2019 SUBJECTIVE: This patient is awake. He is following commands and answering some of my questions. He is oriented x2. No family members at the bedside, but I have a conversation with Mrs. Ferrer by phone. This is his niece, at [phone], and it looks like this patient wants to go back to [facility]. The problem is that he has been requesting high-flow oxygen, but there is a comfort measures only program in that place, and probably we can go ahead and discharge him with that program. She agreed with that, and I already talked to our palliative care team. They will communicate with the fpc and also with the patient's family to find out if that is okay for him. OBJECTIVE: Vital Signs: Temperature 97.5 degrees, pulse 57, respiratory rate 18, blood pressure 126/57, oxygen saturation 92 on 6 L of nasal cannula. HEENT: Head normocephalic, no trauma. PERRLA. Neck: Supple. No JVD. No masses. Central trachea. Chest: He has some rhonchi and crepitus mostly at the bases. Abdomen: Soft, nontender, nondistended. No hepatosplenomegaly. Extremities: No edema, no clubbing, no cyanosis. Neurological: This patient is awake. He is alert. He is oriented x2. His answers are slow. He is hard of hearing, but he is answering to some of my questions. LABORATORY: No lab work done today. ASSESSMENT AND PLAN: 1. Severe chronic obstructive pulmonary disease. We will continue with the same management. We will complete the treatment with antibiotics. We will complete 14 days. Pulmonary Department on board. 2. Acute on chronic hypoxemic respiratory failure. His oxygen saturation has been above 90 with 6 L of oxygen. We will continue with same management. 3. Pneumonia with some improvement on the x-ray. Aware. We will continue and finish the antibiotics. He is still coughing a little bit, but much better compared with previous days. 4. Tracheobronchomalacia. Aware continue with same management. 5. Dementia. Aware. Overall, this patient is breathing better. He is not complaining too much of shortness of breath. He is still requiring high. He is still requiring oxygen supplementation around 6 L. I had a conversation with the niece today, Mrs. Carissa Soares, by phone, and she agreed to send this patient back to [facility], but probably he will need to go under comfort measures only. He seems to understand and that is basically what the patient wants. I already talked to the Palliative Care team, and we will try to set up everything to send this patient in the next 24 hours. cc: Jeff Aguilera MD
[2019-01-03] MEDS: COLACE PO SCH ×2 (03:20→09:29)
[2019-01-03] MEDS: MORPHINE IV PRN ×2 (03:27→12:58)
[2019-01-03] MEDS: MAXIPIME 1 GM in NS 50 ML IV SCH ×2 (05:56→16:38)
[2019-01-03] MEDS: ZYVOX 600 MG/D5W 600 MG/300 ML IVPB IV SCH ×2 (05:57→16:39)
[2019-01-03] MEDS: SYNTHROID PO SCH ×2 (05:57→07:23)
--- NOTE | 2019-01-03 07:27 | Diag Imaging Result Doc PS360 ---
EXAM: CHEST-PORTABLE 01/03/2019 HISTORY: dyspnea TECHNIQUE: AP portable at 0550 COMMENT: There is increased interstitial markings bilaterally. There are old right rib fractures. Lungs are actually slightly better expanded than on 12/27/2018. Considering differences in inspiration and technique there has been no appreciable change since 12/25/2018. The atelectatic changes present particularly at the right upper lobe on 12/24/2018 have resolved. IMPRESSION: Residual atelectasis versus fibrosis plus minus interstitial pulmonary edema. Electronically signed by Jan Olivares 01/03/2019 7:24 AM
[2019-01-03 07:44] LABS: BASO# 0.03 X1000 (0.0-0.2); BASO% 0.5 % (0.0-0.8); EOS# 0.59 X1000 (0.0-0.7); EOS% 9.1 % (0.0-10.0); HEMATOCRIT 44.5 % (42.0-52.0); HEMOGLOBIN 14.8 g/dL (14.0-18.0); LYMPH# 0.95 X1000 (1.2-3.4); LYMPH% 14.6 % (20.5-51.1); MCH 29.2 PG (27-31); MCHC 33.3 g/dL (33-37); MCV 87.9 FL (81-99); MONO# 0.52 X1000 (0.11-0.59); MPV 10.6 FL (7.4-10.4); NEUT# 4.42 X1000 (1.4-6.5); NEUT% 67.8 % (42.2-75.2); PLT 60 X1000 (130-400); RBC 5.06 XMIL (4.7-6.1); RDW 13.4 % (11.5-14.5); WBC 6.51 X1000 (4.8-10.8)
[2019-01-03 07:55] LABS: ESTIMATED GFR > 60
[2019-01-03 08:00] LABS: AGAP 12; BUN 29 mg/dL (8-22); CALCIUM 9.4 mg/dL (8.8-10.2); CHLORIDE 89 mmol/L (98-107); COSMO 273; GLUCOSE 108 mg/dL (70-104); POTASSIUM 3.9 mmol/L (3.5-5.1); SODIUM 133 mmol/L (136-145); TCO2 32 mmol/L (25-35)
[2019-01-03] MEDS: MUCOMYST 20% INH SCH (08:55)
[2019-01-03] MEDS: DUONEB (A & A) INH SCH ×2 (09:02→16:00)
[2019-01-03] MEDS: LASIX IV SCH (09:29)
[2019-01-03] MEDS: MIRALAX PO SCH (09:29)
[2019-01-03] MEDS: ZOFRAN IV PRN ×2 (09:29→12:58)
[2019-01-03] MEDS: TEARISOL OPH SOLUTION BOTH EYES SCH ×3 (09:34→16:39)
[2019-01-03] MEDS: TRANSDERM-SCOP TD SCH (12:58)
--- NOTE | 2019-01-03 13:57 | DISCHARGE SUMMARY ---
ADMISSION DATE: 12/08/2018 DISCHARGE DATE: 01/03/2019 DISCHARGE DIAGNOSES: 1. Severe chronic obstructive pulmonary disease. 2. Acute on chronic hypoxemic respiratory failure. 3. Dementia. 4. Tracheal bronchomalacia. 5. Pneumonia. 6. Atrial fibrillation. 7. History of lung cancer and prostate cancer. 8. Hypothyroidism. 9. Possible anxiety and depression. PROCEDURES PERFORMED: 1. Chest x-ray dated 12/08/2018. Impression: Cardiomegaly and pulmonary vascular congestion, bilateral infiltrates consistent with pulmonary edema and/or pneumonia. 2. Maxillofacial CT dated 12/08/2018. Impression: Superficial skin mass at the left mandible, probably skin cancer. This does involve the subcutaneous fat, but does not invade through the platysma, no adenopathy. 3. Chest CT dated 12/08/2018. 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 4. Head CT dated 12/08/2018. Impression: No acute disease or change from prior. 5. He has been having multiple chest x-rays dated from 12/08/2018 to 01/03/2019. The last one done on 01/03/2019 showed residual atelectasis versus fibrosis plus-minus interstitial pulmonary edema. 6. Chest CT scan dated 01/03/2019, mild interval improvement of the previous CT images. 7. Abdomen and pelvis dated 12/23/2018. Findings: There is probably fluid or mucus impaction of airways of the lower lobes. There are some coarse infiltrates in the lung bases bilaterally. No pneumothorax or large pleural effusion. There is worsening of the significant right inguinal hernia which now extends into the right scrotum. These contain either distal small bowel or proximal colon. Also there is worsening of the small bowel herniation in the left inguinal canal or most of the scrotum. No evidence of bowel obstruction. There is moderate diffuse constipation. No rectal stool impaction. The urinary bladder contains numerous radiodense ladder stones. The prostate gland is enlarged and suspicious, measuring 6 x 7 cm. There is a left hip prosthesis. 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 8. Echocardiogram dated 12/08/2018, pulmonary systolic pressure 44 mmHg, ejection fraction 55 to 60 percent. There is mild mitral annular calcification. There is left atrial enlargement. There is mild tricuspid regurgitation, diastolic dysfunction. CONSULTS: 1. Pulmonary Department, Dr. Taylor. 2. Cardiology Department, Dr. Lowry. HOSPITAL COURSE: An 87-year-old male with a past medical history of ST-elevation myocardial infarction, dementia, prostate cancer, lung cancer, COPD, hypothyroidism, possible anxiety, depression, and atrial fibrillation, brought to the emergency department on 12/08/2018, and was admitted the same day due to respiratory distress and hypoxia. Like I said, we do have a history of ST elevation [place]. He was transferred to [place] last year. Initial ABGs showed combined hypoxic and hypercarbic, hypercapnic respiratory failure. He was placed on the BiPAP machine. Chest x-ray showed bilateral infiltrates consistent with edema and/or pneumonia. There is cardiomegaly as well. The only family member that we were able to localize was his niece. At the beginning, he was Full Code, and like I said, admitted due to respiratory failure and pneumonia. He was placed on broad-spectrum antibiotics, supplemental oxygen. At the beginning, he was placed on the BiPAP machine. He has a history of chronic obstructive pulmonary disease, which is quite advanced. 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 Pulmonary Department was consulted and recommended to cycle the BiPAP machine at bedtime and p.r.n., continue with bronchial hygiene and nebulizer including Mucomyst. Palliative Care was consulted due to his poor prognosis as well. Cardiology Department was consulted as well and they suggested some medications as well as Eliquis twice a day. The patient was improving on a daily basis, but really slow. He completed a course of antibiotics for 14 days including cefepime and Zyvox. We had a large conversation with the niece and also the patient. The patient wants to go back to his shelter but the problem is that he is requiring 5 to 6 L of oxygen at this moment, and that facility does not use more than 5 L, but given his current presentation, age, and multiple comorbidities, poor prognosis, we suggested to transfer this patient to the same facility, but with the end of life program and the niece agreed with that. He will receive the same treatment that he was on before coming to this hospitalization and actually he is going to receive breathing treatment as well and oxygen, but up to 5 L. Today, he is complaining of some abdominal discomfort, but he has been having abdominal discomfort before, and he wants to go back to his place today, so I will discharge him. Like I said, Palliative Care has been on board as well as Pulmonary Department and Cardiology Department. I personally talked to the niece by phone and she agreed to send this patient back to his shelter within the end of life program. Of note, this patient has cancer and he does not want to receive any more chemotherapy or radiotherapy. He is DNR level 1. PHYSICAL EXAMINATION: Vital Signs: Temperature 97.6 degrees, pulse 61, respiratory rate 17, blood pressure 138/70, oxygen saturation 93 on 4 L of nasal cannula. HEENT: Head normocephalic, no trauma. PERRLA. Neck: Supple. No JVD. No masses. Central trachea. Chest: Some rhonchi and crepitus mostly at the bases. Abdomen: Soft, nontender, nondistended. No hepatosplenomegaly. Extremities: No edema, no clubbing, no cyanosis. Neurological: The patient is awake. He is alert. He is oriented x2. His answers are slow. He is hard of hearing but he is answering some of my questions. LABORATORY DATA: WBC 6.5, hemoglobin 14.8, hematocrit 44.5, platelets 60,000. Sodium 133, potassium 3.9, chloride 89, bicarbonate 32, BUN 29, creatinine 1, glucose 108, calcium 9.4. DISCHARGE MEDICATIONS: 1. Mucomyst 3 mL inhaler b.i.d. 2. Albuterol/ipratropium 3 mL inhaler as needed q.6 hours due to shortness of breath. 3. Eliquis 5 mg p.o. b.i.d. 4. Symbicort 1 puff inhaler b.i.d. 5. Bupropion 75 mg p.o. daily. 6. Vitamin D3 400 units p.o. in the morning. 7. Clonazepam 0.5 mg p.o. t.i.d. 8. Colace 100 mg p.o. b.i.d. 9. Fluoxetine 60 mg p.o. daily. 10. Finasteride 5 mg p.o. daily. 11. Furosemide 20 mg p.o. daily. 12. Symbicort 25 mcg p.o. daily. 13. Melatonin 5 mg p.o. at bedtime. 14. Mirtazapine 45 mg p.o. at bedtime 15. Thera M Plus 1 tablet p.o. daily. 16. [place] 7.5 one tablet p.o. b.i.d. as needed for pain. 17. MiraLAX 17 g p.o. daily. 18. Taty ophthalmic solution 1 mL both eyes t.i.d. 19. Potassium chloride 10 mEq p.o. daily. 20. Lyrica 75 mg p.o. t.i.d. 21. Risperidone 1.5 mg p.o. at bedtime. 22. Senna S laxative tablet 1 tablet p.o. in the morning. 23. Tamsulosin 0.4 mg p.o. at bedtime 24. Anoro Ellipta 1 puff inhaler daily. This patient will be discharged to [facility] with the end of life program. His niece, who is the person taking care of this patient, agreed with that. The patient wants to go back to this place, so we will honor his wishes. Time discharging this patient is 40 minutes. cc: Jeff Aguilera MD MTDD
[2019-01-03 16:22] VITALS: BP 134/71
== END 2019-01-03 18:14 | DRG 177 ==
LOC: SUPCPDRO → ED 06:46 → EDIPHOLD 12:18 → SUATTDRO 12:18 → 3S 17:22 → 3N 12-19 18:07
PROVIDERS: ATTEND Internal Medicine
CPT/HCPCS: 70450; 70487; 71010; 71020; 71045; 71046; 71250; 71260; 74000; 74018; 74019; 74020; 74176; 80048; 80053; 80202; 81001; 82378; 82550; 82570; 82805; 82948; 83605; 83735; 83880; 83935; 84100; 84156; 84300; 84443; 84484; 85025; 85027; 85610; 85730; 87040; 87088; 87205; 87449; 87899; 93005; 93010; 93306; 94640; 94660; 94667; 94668; 94760; 94761; 94762; 96365; 96367; 96375; 97110; 97162; 97166; 97530; 97535; 99285; 99291; A9270; J0131; J0692; J1644; J1940; J2020; J2060; J2270; J2405; J2550; J3370; J7030; J7040; J7050; Q9967; S0138; XXXXX